=== PATIENT | female | born 1935 | race Two or more races ===

== ENCOUNTER 2024-09-02 08:24 | Emergency (ER) | payer BC, SELFPAY ==
[2024-09-02] VITALS (8 sets, daily range): BP systolic 165–169; BP diastolic 69–76; PULSE 60–65; RESP 14–24; TEMP 36.1; O2SAT 96–98; BMI 32.9
--- OUTSIDE RECORDS SUMMARY | 2024-09-02 08:26 | XMS_ITS | Encounter Summary ---
Author Organization [facility] Address [address] [place] [id number] Care Team Providers Care [facility] Operations Staff Officer Name Role Phone Thee Thomson MD Primary Care Provider Deborah Fan MD Primary Care Provider [phone] [facility] Primary Care Provider Rubi Castro MD Primary Care Provider [phone] Encounter Details Date Type Department Care Team (Late st Contact Info) Description 08/12/2008 [facility] [id number] [place] [phone] [facility] Social History Tobacco Use Types Packs/Day Years Used Date Smoking Tobacco: Never Alcohol Use Standard Drinks/Week Comments No 0 (1 standard drink = 0.6 oz pur e alcohol) Comments No Sex and Gender Information Value Date Recorded Sex Assigned at Not on file Legal Sex Female 4:18 AM [employer] Gender Identity Not on file Sexual Orientation Not on file documented as of this encounter Plan of Treatment Not on file documented as of this encounter Visit Diagnoses Not on filedocumented in this encounter Care Teams [facility] Operations Staff Officer Relationship Specialty Start Date End [place] Thee [place] [id number] [place] [address] [phone] PCP - General 10/06/01 10/12/12 [place] [address] [place] [address] PCP - General 10/13/12 [facility] [address] [place] [address] PCP - General 10/16/18 12/28/18 [place] [address] [place] [address] PCP - General Cardiology 12/29/18 documented as of this encounter
--- OUTSIDE RECORDS SUMMARY | 2024-09-02 08:27 | XMS_ITS | Clinical Summary ---
Author Organization [facility] Address [address] [place] [id number] Care Team Providers Care Manager Ecommerce Name Role Phone Delphine Mohr Primary Care Provider Allergies Active Allergy Reactions Criticality Noted Date Comments Acetaminophen Rash,Headache 07/28/2014 Amlodipine *Unknown 11/01/2018 Cephalexin Rash 07/28/2014 Carvedilol Headache,Hypertension 02/28/2018 ONLY CAN USE A SPECIFIC NEWSPAPER JOURNALIST- OTHERS CAUSE SEVERE REACTION Ibuprofen Hypertension 02/25/2017 Lisinopril Edema 09/15/2016 Losartan Anaphylaxis High 03/01/2024 Koootok-Luw-Vle Reductase Inhibitors Arthralgia 10/25/2013 Medications clotrimazole (LOTRIMIN) 1 % creamIndications: Tinea corporis Apply topically to affected area(s) 2 times daily. 45 g 1 02/17/20 20 Active medical supply, miscellaneous (GRADUATED COMPRESSION STOCKINGS)Indicat ions:Hypertension , unspecified type,Bilateral leg edema Compression level of 16-20 mmHg knee high medium 1 Packet 3 02/17/20 20 Active cetirizine (ZYRTEC) 10 mg tabletIndications :Allergy, initial encounter Take 1 Tablet (10 mg) by mouth once daily. 90 Tablet 3 03/01/20 24 Active bumetanide (BUMEX) 1 mg tabletIndications :Heart failure with preserved ejection fraction, unspecified HF chronicity (HC) Take one tablet 5 - 6 days per week 90 Tablet 3 05/06/19 25 Active Additional Information Patient taking differently: 1 mg Oral Q AM, Take one tablet 5 - 6 days per week, Reason: Only takes Tues and Th., Reported on 06/03/2024 fexofenadine (Sherrie Allergy) 60 mg tabletIndications :Angioedema, initial encounter Take 60 mg by mouth two times daily. 60 Tablet 3 06/04/19 25 Active eplerenone (INSPRA) 25 mg tabletIndications :Heart failure with preserved ejection fraction, unspecified HF chronicity (HC) Take 1 Tablet (25 mg) by mouth once daily. 90 Tablet 3 06/04/19 25 Active Graduated Compression StockingsIndicati ons:Heart failure with preserved ejection fraction, unspecified HF chronicity (HC) Compression level of 20-30 mmHg (medium compression), knee high. 2 Packet 3 06/04/19 25 Active carvediloL (Coreg) 12.5 mg tabletIndications :HTN (hypertension),He art failure with preserved ejection fraction, unspecified HF chronicity (HC) Take 1 Tablet (12.5 mg) by mouth two times daily. 180 Tablet 3 07/11/19 25 Active ALPRAZolam 0.25 mg tabletIndications :Insomnia, idiopathic Take 1 Tablet (0.25 mg) by mouth at bedtime if needed for Anxiety. 30 Tablet 08/08/19 25 Active ALPRAZolam 0.25 mg tabletIndications :Insomnia, idiopathic Take 1 Tablet (0.25 mg) by mouth at bedtime if needed for Anxiety. 30 Tablet 07/09/19 25 025 Discontin ued(Reord er (E-cancel not sent)) Active Problems Problem Noted Date Diagnosed Date Sensorineural hearing loss (SNHL) of both ears 1 04/29/2019 Congestive heart failure 10/10/2017 Hyperopia of left eye with astigmatism and presb yopia 09/25/2017 Myopia of right eye with astigmatism and presbyo sen 09/25/2017 Ruptured disk 03/02/2017 Overview (03/02/2017): T12 - L1 03/01/17 Venous stasis dermatitis of left lower extremity 08/29/2016 Calculus of gallbladder with acute on chronic ch olecystitis 08/29/2016 Pseudophakia of both eyes 10/20/2014 Palpitations 01/06/2014 Adjustment disorder with mixed anxiety and depre ssed mood 08/12/2013 Pre-ulcerative corn or callous 03/28/2013 Hyperlipidemia 02/11/2013 Chest pain 01/07/2013 Hyperparathyroidism 12/27/2012 Overview (12/27/2012): Normocalcemic. Dr. Meza recommends yearly calcium testing; if elevated, refer back to him. Biannual DXA and scan distal radius. DJD (degenerative joint disease) of knee 013 Pinedo cyst 11/26/2012 Meniscus tear 11/26/2012 Shortness of breath 11/12/2012 Abnormal echocardiogram 11/12/2012 Mitral regurgitation 10/22/2012 CAD (coronary artery disease) 10/20/2012 Vitamin D deficiency 10/04/2012 HTN (hypertension) Cardiomegaly Protruded lumbar disc Overview (10/03/2012): s/p surgical treatment Resolved Problems Problem Noted Date Diagnosed Date Resolved Date Adjustment disorder with anxiety 05/23/2013 10/25/2013 AAA (abdominal aortic aneurysm) 10/20/2012 02/24/2020 Overview (02/24/2020): CT notes tortuosity of aorta - not aneurysm as noted on US 02/24/2020 Heart murmur 10/03/2012 10/22/2012 Encounters Date Type Department Care Team Description 08/26/2024 3:00 PM CDT - 08/26/2024 11:59 PM CDT Hospital Encounter [facility] [address] [place] [address] Ramone Castro MD Zetina, Dora Heart failure with preserved ejection fraction, unspecified HF chronicity (HC); Cardiomyopathy, unspecified type (HC) 08/26/2024 Travel 08/09/2024 Nurse Triage [facility] [address] [place] [address] Delphine Mohr PA Blood Pressure 08/08/2024 Telephone [facility] [address] [place] [address] 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, 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 08/05/2024 Refill [facility] [address] [place] [address] Delphine Mohr PA Refill Request (Alprazolam/) 07/10/2024 Telephone [facility] [address] [place] [address] Reginald Sheikh MD Refill Request 07/08/2024 Refill [facility] [address] [place] [address] Reginald Sheikh MD Refill Request (carvediloL, xanax ) 07/05/2024 Refill [facility] [address] [place] [address] Delphine Mohr PA Refill Request (Alprazolam) 06/17/2024 10:15 AM CDT Orders Only [facility] [address] [place] [address] Lab, [facility] 06/17/2024 Telephone [facility] [address] [place] [address] Reginald Sheikh MD Questions (Rx for compression socks) 06/17/2024 Travel 06/07/[address] [address] Darrell Trivedi MD Results 06/03/2024 9:00 AM CDT Office Visit [facility] [address] [place] [address] Reginald Sheikh MD Follow Up (1 MONTH FOLLOW UP IN HF CLINIC PER TOSHA); Concerns (Patient says her ankle swelling has gone down slightly and she is doing a little more walking around the house) 06/03/2024 Telephone [facility] [address] [place] [address] Delphine Mohr PA Appointment Request 06/03/2024 Travel 06/03/[address] [address] Darrell Trivedi MD Results from Last 3 Months Immunizations Immunization Administration Dates Next Due Influenza, High-dose Inactivated 04/26/2016,01/26 Influenza, IIV3 (Age >=3 years) 12/26/19 13,01/04/2006,02/02/2004,2002 Influenza, Inactivated AIIV4 (Age 65+ Years) Preserv Free 02/17/2020 Influenza, Inactivated IIV3 (Age 65+ Years) Preserv Free 01/16/2019,11/21/2016 Pneumococcal Poly,23-Valent (Pneumovax) 10/15/2012,12/09/2009 Pneumococcal conj 13-Valent (Prevnar 13) 08/15/2014 Pneumococcal, Unspecified 10/15/2012 Td, Preservative Free (age > = 7 Years) 06/20/2006 Zoster (Zostavax-ZVL, live) 07/18/2014 Family History Medical History Relation Name Comments Hypertension Mother Cancer-breast No Family History Relation Name Status Comments Father Mother Social History Tobacco Use Types Packs/Day Years Used Date Smoking Tobacco: Never Smokeless Tobacco: Never Tobacco Cessation:Counseling Given: Yes Alcohol Use Standard Drinks/Week Comments No 0 (1 standard drink = 0.6 oz pur e alcohol) PHQ-2 Answer Date Recorded PHQ-2 TOTAL SCORE 2 03/01/2024 Social Connections Answer Date Recorded Do you often feel lonely or isolated from those around you? 0 03/01/2024 Financial Resource Strain Answer Date R ecorded Difficulty of Paying Living Expenses 3 03/01/2024 Difficulty of Paying Living Expenses Not on file 03/01/2024 Food Insecurity Answer Date Recorded Do you worry your food will run out before you are able to buy more? 1 03/01/2024 Transportation Needs Answer Date Record ed Does lack of transportation keep you from medica l appointments? 1 03/01/2024 Does lack of transportation keep you from work, meetings or getting things that you need? 1 03/01/2024 Housing Stability Answer Date Recorded What is your housing situation today? 1 03/01/2024 Utilities Answer Date Recorded Do you have trouble paying f or utilities (for example, heat, electricity, water, phone)? 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 Gender Identity Not on file Sexual Orientation Not on file Obstetrics History Last Filed Vital Signs Vital Sign Reading Time Taken Comments Blood Pressure 119/50 08/26/2024 4:22 PM CDT Pulse 67 08/26/2024 4:22 PM CDT Temperature 36.8 C (98.2 F) 05/27/2024 10:42 AM MUSIC EXECUTIVE Respiratory Rate 18 05/03/2024 2:49 PM MUSIC EXECUTIVE Oxygen Saturation 96% 08/26/2024 4:18 PM CDT Inhaled Oxygen Concentration - - Weight 80.7 kg (178 lb) 06/03/2024 9:20 AM CDT Height 154.9 cm (5' 1) 06/03/2024 9:20 AM CDT Body Mass Index 33.63 06/03/2024 9:20 AM CDT Plan of Treatment Upcoming Encounters Date Type Department Care Team (Late st Contact Info) Description 09/16/2024 10:25 AM CDT Office Visit [facility] [address] [place] [address] [place] [address] [place] [address] 11/22/2024 8:00 AM CDT Office Visit [facility] [address] [place] [phone] Reginald Sheikh MD [address] [place] [address] Health Maintenance Due Date Last Done Comments Tdap 1946 RSV vaccine for adults or (1 - 1-dose 75+ series) 2012 Zoster (shingles) series for age 50+ (2 of 3) 09/12/2014 07/18/2014 Tetanus booster 10/20/2016 10/20/2006 (Comp leted outside of [facility]), 06/20/2006 COVID-19 vaccine series (2023- season) 2023 Influenza Vaccine (Season Ended) 2024 02/17/2020, 01/16/2019, 11/21/2016, Additional history exists Medicare Wellness for age 65+ 03/02/2025 03/01/2024, 02/17/2020, 10/10/2017, Additional history exists Depression screening for age 12+ 03/04/2025 03/04/2024, 03/01/2024, 02/19/2020, Additional history exists BMI (ht and wt on same day) for age 18+ 06/03/2025 06/03/2024, 05/27/2024, 05/03/2024, Additional history exists Pneumococcal series for age 50+ Completed 08/15/2014, 10/15/2012, 10/15/2012, Additional history exists DEXA/DXA scan for age 65+ Completed 09/01/2015, 08/2012 Hepatitis B series for 19+ Aged Out N o longer eligible based on patient's age to complete this topic Procedures Procedure Name Priority Date/Time Associated Diagnosis Comments MR CARDIAC STRESS IMAGING WWO Routine 08/26/2024 4:42 PM CDT Heart failure with preserved ejection fraction, unspecified HF chronicity (HC) Cardiomyopathy, unspecified type (HC) ISTAT CHEM 8 Routine 08/26/2024 3:35 PM CDT BASIC METABOLIC PANEL Routine 06/17/2024 10:09 AM CDT Heart failure with preserved ejection fraction, unspecified HF chronicity (HC) XR DXA BONE DENSITY 2 SITES AXIAL Routine 09/01/2015 10:59 AM CDT Post-menopausal from Last 3 Months or Most Recently Relevant to Health Maintenance Results * MR CARDIAC STRESS IMAGING WWO (08/26/2024 4:42 PM CDT) Anatomical Region Laterality Modality Magnetic Resonan ce 08/26/2024 3:16 PM CDT Narrative 08/26/2024 5:27 PM CDT [facility] CMR Report Name: MATTIE VILLEGAS : Scan Date: Electronically signed by David Soares 17:27:37 VITALS ===== HEIGHT: 61 in (155 cm) WEIGHT: 178 lbs (81 kgs) BSA: 1.80 m^2 FINAL IMPRESSION ===== 1. Normal 1st pass quantitative myocardial perfusion during regadenoson stress and at rest. The probability of ischemia from hemodynamically significant obstructive coronary artery disease or microvascular disease is very low. Peak global myocardial blood flow measurement was normal at 2.3 mL/min/g. Myocardial perfusion reserve was also normal at 2.1. 2. No myocardial infarction or amyloidosis on late gadolinium enhancement imaging. There is dense nonspecific nonischemic myocardial fibrosis in the basal septum emanating from the aortic annulus. LV scar size is 2 % of LV mass. No diffuse fibrosis on extracellular volume (ECV) measures. No siderosis or Fabry s disease. No cardiac thrombus. No myocardial edema. 3. Quantitative LVEF 57 %. LV systolic function is normal. LV cavity size is normal. LV wall thickness is normal. 4. Quantitative RVEF 67 %. RV systolic function is normal. RV cavity size is normal. 5. Large filling defect noted in the suprarenal descending abdominal aorta occupying ~40% of the lumen suggesting atheroma, thrombosis or both. Recommend abdominal ultrasound or CT angiography for further evaluation. 6. Atheroma noted in the distal aortic arch. 7. No significant valve disease. There is mild tricuspid regurgitation qualitatively. There is trivial aortic regurgitation. Aortic regurgitant volume 1 ml. 8. No pericardial or pleural effusions. SUMMARY ===== LEFT VENTRICLE: Quantitative LVEF 57 %. LV systolic function is normal. LV cavity size is normal. LV wall thickness is normal. VIABILITY: No myocardial infarction or amyloidosis on late gadolinium enhancement imaging. There is dense nonspecific nonischemic myocardial fibrosis in the basal septum emanating from the aortic annulus. LV scar size is 2 % of LV mass. No diffuse fibrosis on extracellular volume (ECV) measures. No siderosis or Fabry s disease. No cardiac thrombus. No myocardial edema. STRESS: Normal 1st pass quantitative myocardial perfusion during regadenoson stress and at rest. The probability of ischemia from hemodynamically significant obstructive coronary artery disease or microvascular disease is very low. Peak global myocardial blood flow measurement was normal at 2.3 mL/min/g. Myocardial perfusion reserve was also normal at 2.1. RIGHT VENTRICLE: Quantitative RVEF 67 %. RV systolic function is normal. RV cavity size is normal. LEFT ATRIUM: Saundra 52 mL/m2 RIGHT ATRIUM: Kevin 88 mL/m2 PERICARDIUM: There is no pericardial effusion. PLEURAL EFFUSION: There is no pleural effusion. AORTIC VALVE: Aortic valve is trileaflet. There is no aortic stenosis. There is trivial aortic regurgitation. Aortic regurgitant volume 1 ml. MITRAL VALVE: Mitral valve is mildly thickened. There is no mitral regurgitation. TRICUSPID VALVE: Tricuspid valve leaflets are normal. There is mild tricuspid regurgitation qualitatively. AORTIC ROOT: The aortic root is normal. OTHER FINDINGS: -Large filling defect noted in the suprarenal descending abdominal aorta occupying ~40% of the lumen suggesting atheroma, thrombosis or both. Recommend abdominal ultrasound or CT angiography for further evaluation. -Atheroma noted in the distal aortic arch. -Spherical <2 cm nonenhancing areas in the kidneys are consistent with simple cysts, but not characterized on this cardiac exam. CORE EXAM ===== MEASUREMENTS ----- --- VOLUMETRIC ANALYSIS . . LV Reference RV Reference +------+ +------+ +------+ + EDV ml 152 125 ml/m^2 85 70 ESV ml 66 41 ml/m^2 37 23 CO L/min 5.68 5.54 L/min/m^2 3.16 3.08 MASS g 92 g/m^2 51 SV ml 86 84 ml/m^2 48 47 EF % 57 67 '------+ +------+ +------+ ' CARDIAC OUTPUT HR: 66 BPM EXTRACELLULAR VOLUME MEASUREMENT PRE-CONTRAST T1 MYOCARDIUM: 1050 msec ECV: 26.7 % IRON QUANTIFICATION MYOCARDIAL T2*: 41 msec LIVER T2*: 29 msec 17 SEGMENT ----- --- . ----- ------. Segments Wall Motion Hyperenhancement Stress Perfusion Interpretation + + + + +----- ----- ------+ Base Anterior Normal/Hyper None Normal Base Anteroseptal Normal/Hyper 1-25% Normal Non-CAD Scar Base Inferoseptal Normal/Hyper 1-25% Normal Non-CAD Scar Base Inferior Normal/Hyper None Normal Base Inferolateral Normal/Hyper None Normal Base Anterolateral Normal/Hyper None Normal Mid Anterior Normal/Hyper None Normal Mid Anteroseptal Normal/Hyper None Normal Mid Inferoseptal Normal/Hyper None Normal Mid Inferior Normal/Hyper None Normal Mid Inferolateral Normal/Hyper None Normal Mid Anterolateral Normal/Hyper None Normal Apical Anterior Normal/Hyper None Normal Apical Septal Normal/Hyper None Normal Apical Inferior Normal/Hyper None Normal Apical Lateral Normal/Hyper None Normal [place] Normal/Hyper None Normal + + + + +----- ----- ------+ RV Segments Wall Motion Hyperenhancement Interpretation + + + + +----- ----- ------+ RV Basal Anterior RV Basal Inferior RV Mid RV Apical ' + + + +----- ----- ------' FINDINGS LV SCAR SIZE (17 SEGMENT): 2 % STRESS ===== STRESS PROTOCOL ----- --- Regadenoson AMOUNT: 0.4 mg AMINOPHYLLINE DOSE: 50 mg SCAN INFO ===== GENERAL ----- --- SCANNER NEWSPAPER JOURNALIST: SIEMENS MODEL: Avanto_fit CONTRAST AGENT TYPE: Gadavist GD CONCENTRATION: 1.0 M VOLUME ADMINISTERED: 10 ml DOSAGE: 0.12 mmol/kg SETUP REFERRING PHYSICIAN: RAMONE CASTRO ATTENDING PHYSICIAN: RAMONE CASTRO BILLING ===== Patient Account [id number] ICD10 Codes I50.30, I42.9 ADDITIONAL NOTES ===== 1 venc flow Report generated by [employer], a product of [employer] Procedure Note David Soares MD - 08/26/2024 [facility] CMR Report Name: BAKARI MATTIE S : Scan Date: Electronically signed by David Soares 17:27:37 VITALS ===== HEIGHT: 61 in (155 cm) WEIGHT: 178 lbs (81 kgs) BSA: 1.80 m^2 FINAL IMPRESSION ===== 1. Normal 1st pass quantitative myocardial perfusion during regadenosonstress and at rest. The probability of ischemia from hemodynamically significant obstructive coronary arterydisease or microvascular disease is very low. Peak global myocardial blood flow measurement was normal at2.3 mL/min/g. Myocardial perfusion reserve was also normal at 2.1. 2. No myocardial infarction or amyloidosis on late gadolinium enhancementimaging. There is dense nonspecific nonischemic myocardial fibrosis in the basal septum emanatingfrom the aortic annulus. LV scar size is 2 % of LV mass. No diffuse fibrosis on extracellular volume (ECV)measures. No siderosis or Fabry s disease. No cardiac thrombus. No myocardial edema. 3. Quantitative LVEF 57 %. LV systolic function is normal. LV cavity sizeis normal. LV wall thickness is normal. 4. Quantitative RVEF 67 %. RV systolic function is normal. RV cavity sizeis normal. 5. Large filling defect noted in the suprarenal descending abdominal aortaoccupying ~40% of the lumen suggesting atheroma, thrombosis or both. Recommend abdominal ultrasoundor CT angiography for further evaluation. 6. Atheroma noted in the distal aortic arch. 7. No significant valve disease. There is mild tricuspid regurgitationqualitatively. There is trivial aortic regurgitation. Aortic regurgitant volume 1 ml. 8. No pericardial or pleural effusions. SUMMARY ===== LEFT VENTRICLE: Quantitative LVEF 57 %. LV systolic function is normal. LVcavity size is normal. LV wall thickness is normal. VIABILITY: No myocardial infarction or amyloidosis on late gadoliniumenhancement imaging. There is dense nonspecific nonischemic myocardial fibrosis in the basal septum emanating from theaortic annulus. LV scar size is 2 % of LV mass. No diffuse fibrosis on extracellular volume (ECV) measures. Nosiderosis or Fabry s disease. No cardiac thrombus. No myocardial edema. STRESS: Normal 1st pass quantitative myocardial perfusion duringregadenoson stress and at rest. The probability of ischemia from hemodynamically significant obstructive coronary arterydisease or microvascular disease is very low. Peak global myocardial blood flow measurement was normal at 2.3mL/min/g. Myocardial perfusion reserve was also normal at 2.1. RIGHT VENTRICLE: Quantitative RVEF 67 %. RV systolic function is normal.RV cavity size is normal. LEFT ATRIUM: Saundra 52 mL/m2 RIGHT ATRIUM: Kevin 88 mL/m2 PERICARDIUM: There is no pericardial effusion. PLEURAL EFFUSION: There is no pleural effusion. AORTIC VALVE: Aortic valve is trileaflet. There is no aortic stenosis.There is trivial aortic regurgitation. Aortic regurgitant volume 1 ml. MITRAL VALVE: Mitral valve is mildly thickened. There is no mitralregurgitation. TRICUSPID VALVE: Tricuspid valve leaflets are normal. There is mildtricuspid regurgitation qualitatively. AORTIC ROOT: The aortic root is normal. OTHER FINDINGS: -Large filling defect noted in the suprarenal descendingabdominal aorta occupying ~40% of the lumen suggesting atheroma, thrombosis or both. Recommend abdominal ultrasoundor CT angiography for further evaluation. -Atheroma noted in the distal aortic arch. -Spherical <2 cm nonenhancing areas in the kidneys are consistent withsimple cysts, but not characterized on this cardiac exam. CORE EXAM ===== MEASUREMENTS ----- --- VOLUMETRIC ANALYSIS . . LV Reference RV Reference +------+ +------+ +------+ + EDV ml 152 125 ml/m^2 85 70 ESV ml 66 41 ml/m^2 37 23 CO L/min 5.68 5.54 L/min/m^2 3.16 3.08 MASS g 92 g/m^2 51 SV ml 86 84 ml/m^2 48 47 EF % 57 67 '------+ +------+ +------+ ' CARDIAC OUTPUT HR: 66 BPM EXTRACELLULAR VOLUME MEASUREMENT PRE-CONTRAST T1 MYOCARDIUM: 1050 msec ECV: 26.7 % IRON QUANTIFICATION MYOCARDIAL T2*: 41 msec LIVER T2*: 29 msec 17 SEGMENT ----- --- . ----- ------. Segments Wall Motion Hyperenhancement Stress Perfusion Interpretation + + + + +----- ----- ------+ Base Anterior Normal/Hyper None Normal Base Anteroseptal Normal/Hyper 1-25% Normal Non-CAD Scar Base Inferoseptal Normal/Hyper 1-25% Normal Non-CAD Scar Base Inferior Normal/Hyper None Normal Base Inferolateral Normal/Hyper None Normal Base Anterolateral Normal/Hyper None Normal Mid Anterior Normal/Hyper None Normal Mid Anteroseptal Normal/Hyper None Normal Mid Inferoseptal Normal/Hyper None Normal Mid Inferior Normal/Hyper None Normal Mid Inferolateral Normal/Hyper None Normal Mid Anterolateral Normal/Hyper None Normal Apical Anterior Normal/Hyper None Normal Apical Septal Normal/Hyper None Normal Apical Inferior Normal/Hyper None Normal Apical Lateral Normal/Hyper None Normal [place] Normal/Hyper None Normal + + + + +----- ----- ------+ RV Segments Wall Motion Hyperenhancement Interpretation + + + + +----- ----- ------+ RV Basal Anterior RV Basal Inferior RV Mid RV Apical ' + + + +----- ----- ------' FINDINGS LV SCAR SIZE (17 SEGMENT): 2 % STRESS ===== STRESS PROTOCOL ----- --- Regadenoson AMOUNT: 0.4 mg AMINOPHYLLINE DOSE: 50 mg SCAN INFO ===== GENERAL ----- --- SCANNER NEWSPAPER JOURNALIST: SIEMENS MODEL: Avanto_fit CONTRAST AGENT TYPE: Gadavist GD CONCENTRATION: 1.0 M VOLUME ADMINISTERED: 10 ml DOSAGE: 0.12 mmol/kg SETUP REFERRING PHYSICIAN: RAMONE CASTRO ATTENDING PHYSICIAN: RAMONE CASTRO BILLING ===== Patient Account [id number] ICD10 Codes I50.30, I42.9 ADDITIONAL NOTES ===== 1 venc flow Report generated by [employer], a product of [employer] us Ramone Castro MD MR Final Result * ISTAT CHEM 8 (08/26/2024 3:35 PM CDT) [facility] SODIUM, POCT 08/26/2024 3:45 PM CDT LABORATORY Comment:Unable to determine. POTASSIUM, POCT 08/26/2024 3:45 PM CDT LABORATORY Comment:Unable to determine. CHLORIDE, POCT 08/26/2024 3:45 PM CDT LABORATORY Comment:Unable to determine. CO2,TOTAL, POCT 08/26/2024 3:45 PM CDT LABORATORY Comment:Unable to determine. ANION GAP, POCT 08/26/2024 3:45 PM CDT LABORATORY Comment:Unable to calculate. GLUCOSE, POCT 08/26/2024 3:45 PM CDT LABORATORY Comment:Unable to determine. IONIZED CALCIUM, POCT 08/26/2024 3:45 PM CDT [facility] Comment:Unable to determine. BUN, POCT 08/26/2024 3:45 PM CDT LABORATORY Comment:Unable to determine. CREATININE, POCT 08/26/2024 3:45 PM CDT LABORATORY Comment:Unable to determine. BUN/CREAT RATIO, POCT 08/26/2024 3:45 PM CDT LABORATORY Comment:Unable to calculate. eGFR 08/26/2024 3:45 PM CDT LABORATORY Comment:Unable to calculate. HEMATOCRIT, POCT 38.0 33.0 - 51.0 % 08/26/2024 3:45 PM CDT LABORATORY HEMOGLOBIN, POCT 12.9 12.0 - 16.0 g/dL 08/26/2024 3:45 PM CDT LABORATORY Blood BLOOD SPECIMEN / Unknown 08/26/2024 3:35 PM CDT 08/26/2024 3:45 PM CDT Ramone Castro MD CHEMISTRY Final Result LABORATORY [facility] ZIP [id number] [place] [id number] * BASIC METABOLIC PANEL (06/17/2024 10:09 AM CDT) GLUCOSE 92 65 - 99 mg/dL [facility] Comment: Fasting reference interval UREA NITROGEN (BUN) 11 7 - 25 mg/dL [facility] CREATININE 0.66 0.60 - 0.95 mg/dL [facility] EGFR 85 > OR = 60 mL/min/1. 73m2 [facility] [place] BUN/CREATININE RATIO SEE NOTE: 6 - 22 (calc) [facility] Comment: Not Reported: BUN and Creatinine are within reference range. SODIUM 139 135 - 146 mmol/L [facility] POTASSIUM 4.7 3.5 - 5.3 mmol/L [facility] CHLORIDE 102 98 - 110 mmol/L [facility] CARBON DIOXIDE 24 20 - 32 mmol/L [facility] ELECTROLYTE BALANCE 13 7 - 17 mmol/L (calc) [facility] CALCIUM 9.2 8.6 - 10.4 mg/dL [facility] Blood BLOOD SPECIMEN / Unknown 06/17/2024 10:09 AM CDT 06/17/2024 10:09 AM CDT Reginald Sheikh MD CHEMISTRY Final Result [facility] [address] [place] [address], [place] [phone] [facility] [address] [place] [address] * (ABNORMAL) XR DEXA BONE DENSITY 2 SITES [33005.1] (09/01/2015 10:59 AM CDT) Anatomical Region Laterality Modality Spine, HIPS, HIPL, HIPR Other Narrative 09/02/2015 9:24 PM CDT Please see scanned document for results of this study. Deborah Fan MD DEXA Final Result from Last 3 Months or Most Recently Relevant to Health Maintenance Insurance MEDICARE PART A HB ONLY [facility] Member Subscriber Plan / Payer (Ef fective 2024-Present) Name:Mattie Villegas Relation to Subscriber:Self Name:Mattie Villegas Payer ID:[id number] ([facility]) Group ID:[id number] Type:Not on file Address: MAILSTOP: [id number] [address] [place] [address] Care Teams Manager Ecommerce Relationship Specialty [place] [address] [place] [address] PCP - General Physician Malt Specifications Control Assistant 05/03/24
--- OUTSIDE RECORDS SUMMARY | 2024-09-02 08:28 | XMS_ITS | Encounter Summary ---
Author Organization [place] Address [address] [place] [address] Care Team Providers Care Devops Architect Name Role Phone Thee Thomson MD Primary Care Provider [phone] Deborah Fan MD Primary Care Provider [phone] [facility] Primary Care Provider Rubi Castro MD Primary Care Provider [phone] Encounter Details Date Type Department Care Team (Late st Contact Info) Description 10/18/2010 [facility] Medical Advice [facility] [id number] [place] [address] [phone] Homa Connolly, LILIAM Social History Tobacco Use Types Packs/Day Years Used Date Smoking Tobacco: Never Alcohol Use Standard Drinks/Week Comments No 0 (1 standard drink = 0.6 oz pur e alcohol) Comments No Sex and Gender Information Value Date Recorded Sex Assigned at Not on file 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 Gender Identity Not on file Sexual Orientation Not on file documented as of this encounter Plan of Treatment Not on file documented as of this encounter Visit Diagnoses Not on filedocumented in this encounter Care Teams Devops Architect Relationship Specialty Start Date [place]e Thomson [place] [id number] [place] [id number] PCP - General 10/06/01 10/12/12 [place] [address] [place] [address] PCP - General 10/13/12 10/15/18 [facility] [address] [place] [address] PCP - General 10/16/18 12/28/18 [place] [address] [place] [address] PCP - General Cardiology 12/29/18 documented as of this encounter
--- OUTSIDE RECORDS SUMMARY | 2024-09-02 08:28 | XMS_ITS | Clinical Summary ---
Author Organization [place] Address [address] [place] [address] Care Team Providers Care Industrial Diamond Polisher Name Role Phone Rubi Castro MD Primary Care Provider [phone] Allergies Active Allergy Reactions Criticality Noted Date Comments Acetaminophen Other (See Comments) 11/14/2018 Gives me high blood pressure No Known Allergies 08/23/2002 Medications aspirin 81 MG tablet Take 81 mg by mouth every morning Active menthol (ICY HOT) 5 % PTCHIndications:M idline thoracic back pain, unspecified chronicity Apply 1 patch topically every 8 hours as needed for muscle soreness 10 patch 7 Active rosuvastatin (CRESTOR) 10 MG tablet Take 10 mg by mouth daily Active carvedilol (COREG) 6.25 MG tabletIndications :Benign essential hypertension Take 2 tablets (12.5 mg) by mouth 2 times daily (with meals) 60 tablet 9 Active carvedilol (COREG) 12.5 MG tabletIndications :Benign essential hypertension Take 1 tablet (12.5 mg) by mouth 2 times daily (with meals) 60 tablet 9 Active Active Problems Problem Noted Date Diagnosed Date Cervical cancer screening 02/25/2016 Overview (02/25/2016): No pap results found in epic. Pt needs 2 Normal Pap/Neg HPV results or 3 Normal paps within the past 10 years, with the last one being in the last 5 years, before pap screening can be discontinued. Hm updated to 3 yr Pap/HPV. CHF (congestive heart failure) 06/10/2010 CARDIOVASCULAR SCREENING; LDL GOAL LESS THAN 130 01/24/2010 Resolved Problems Problem Noted Date Diagnosed Date Resolved Date Atypical chest pain 02/25/2017 02/26/20 17 Immunizations Immunization Administration Dates Next Due Influenza (IIV3) PF 01/04/2006,02/02/2004,2002 [place] Tuberculin Skin Test 11/08/2000 Pneumococcal 23 valent 10/15/2012,12/09/2009 TD,PF 7+ (Tenivac) 06/20/2006 Social History Tobacco Use Types Packs/Day Years Used Date Smoking Tobacco: Never Alcohol Use Standard Drinks/Week Comments No 0 (1 standard drink = 0.6 oz pur e alcohol) Adolescent Education Answer Date Record ed Getting School Help Needed Not on file 01/01 Comments No Sex and Gender Information Value Date Recorded Sex Assigned at Not on file 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 Gender Identity Not on file Sexual Orientation Not on file Last Filed Vital Signs Vital Sign Reading Time Taken Comments Blood Pressure 109/52 12/30/2018 10:14 AM CDT Pulse 69 12/29/2018 3:44 PM CDT Temperature 36.5 C (97.7 F) 12/30/2018 10:14 AM CDT Respiratory Rate 18 12/30/2018 10:14 AM CDT Oxygen Saturation 97% 12/30/2018 10:14 AM CDT Inhaled Oxygen Concentration - - Weight 86.4 kg (190 lb 8 oz) 12/29/2018 2:25 PM CDT Height 154.9 cm (5' 1) 12/29/2018 2:25 PM CDT Body Mass Index 35.99 12/29/2018 2:25 PM CDT Plan of Treatment Not on file Advance Directives For more information, please contact: [phone] * Full Code (Latest Code Status on File) Date Activated Date Inactivated Comments 12/29/2018 2:27 PM 12/30/2018 1:16 PM C/w prior wi shes Question Answer Comments Code status determined by: Other (please documen t) * Full Code Date Activated Date Inactivated Comments 02/25/2017 7:04 AM 02/25/2017 7:17 PM * Full Code Date Activated Date Inactivated Comments 10/15/2012 10:08 AM 02/25/2017 7:04 AM * Full Code Date Activated Date Inactivated Comments 10/14/2012 4:46 AM 10/15/2012 10:08 AM Care Teams Industrial Diamond Polisher Relationship Specialty Start Date End Date Rubi Castro MD PCP - General Cardiology 12/29/18
--- OUTSIDE RECORDS SUMMARY | 2024-09-02 08:28 | XMS_ITS | Encounter Summary ---
Author Organization [place] Address [address] [place] [address]. [place] [address] Care Team Providers Care Building Carpenter Helper Name Role Phone Thee Thomson MD Primary Care Provider [phone] Deborah Fan MD Primary Care Provider [phone] [facility] Primary Care Provider Rubi Castro MD Primary Care Provider [phone] Encounter Details Date Type Department Care Team (Late st Contact Info) Description 11/09/2007 [facility] [address] [facility], [address] [place] [address] [place] [address] [place] [address] Social History Tobacco Use Types Packs/Day Years Used Date Smoking Tobacco: Never Alcohol Use Standard Drinks/Week Comments No 0 (1 standard drink = 0.6 oz pur e alcohol) Comments No Sex and Gender Information Value Date Recorded Sex Assigned at Not on file 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 Gender Identity Not on file Sexual Orientation Not on file documented as of this encounter Plan of Treatment Not on file documented as of this encounter Visit Diagnoses Not on filedocumented in this encounter Care Teams Building Carpenter Helper Relationship Specialty [place] [address] [place] [address] PCP - General 10/06/01 10/12/12 [place] [address] [place] [address] PCP - General 10/13/12 10/15/18 [facility] [address] [place] [address] PCP - General 10/16/18 12/28/18 [place] [address] [place] [address] PCP - General Cardiology 12/29/18 documented as of this encounter
--- NOTE | 2024-09-02 09:13 | ED_ITS ---
HPI - General Adult General Chief complaint: Sore Throat Stated complaint: Throat swelling Time Seen by Provider: 09/02/24 08:56 History of Present Illness HPI narrative: This 88-year-old female comes in with her daughter. 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 The patient is reporting some pain in her throat and a sense of swelling in her tongue that began yesterday afternoon. She has had symptoms like this in the past. She does not report any fever or cough. She is on an antianxiety medicine and a couple blood pressure medicines. She is not on an FORREST-inhibitor. She states that her symptoms have improved a bit since yesterday. She also reports some itching in both of her hands. Related Data Home Medications ?Medication ?Instructions ?Recorded ?Confirmed alprazolam 0.25 mg tablet mg PO 09/02/24 bumetanide 1 mg tablet 1 mg PO DAILY 09/02/2409/02 carvedilol 12.5 mg tablet 12.5 mg PO BID 09/02/2412/19 eplerenone 25 mg tablet 25 mg PO DAILY 09/02/2412/19 Previous Rx's ?Medication ?Instructions ?Recorded methylprednisolone 4 mg tablets in See Rx Instructions PO .COMPLEX 09/02/24 a dose pack (Medrol (Rubens)) #21 ea Allergies Allergy/AdvReac Type Severity Reaction Status Date / Time No Known Drug Allergies Allergy Verified 09/02/24 08:39 Review of Systems Status of ROS: Reports: 10 or more systems reviewed and unremarkable except as noted in History and below Narrative: Constitutional: No fevers, no weight gain or loss. Eyes: No discharge. No vision changes. HENT: No congestion, no ear pain. She reports a sore throat and feeling like her tongue was swelling up. Cardiovascular: No chest pain, no palpitations. Respiratory: No shortness of breath, no wheezes, no cough. Gastrointestinal: No abdominal pain, no vomiting, no diarrhea. Genitourinary: No dysuria, no hematuria. Musculoskeletal: Normal range of motion. Skin: No rashes. Itching in both of her hands. Neurological: No dizziness, weakness, sensory change, speech change. Endo/Heme/Allergies: No bruising or bleeding. No polydipsia. Pysch: no suicidality, no anxiety, no insomnia. All other systems reviewed and are negative. [facility] Social History Smoking Status: Former smoker Second hand tobacco smoke exposure: No How often do you have a drink containing alcohol: never How often do you have six or more drinks on one occasion: Never AUDIT-C Alcohol total score: 0 Non-prescribed substance use: denies use Exam Narrative: Exam Narrative: Constitutional: Well-developed, well-nourished, no acute distress. HEENT: Normocephalic, atraumatic. No pharyngeal erythema or exudate. No tonsillar hypertrophy. Tongue appears normal without any sign of swelling or angioedema. Neck: Normal range of motion. Nontender. Supple. Heart: Regular. No murmurs. Normal rate. Intact distal pulses. Lungs: Clear to auscultation. No chest discomfort. No wheezes, rhonchi, or rales. Abdomen: Normal bowel sounds. Nontender. No rebound tenderness. Genitalia: Deferred. Back: No midline tenderness. Normal range of motion. Extremities: Normal range of motion. No injury. Skin: Intact. No rash. Warm. No erythema or pallor. Neurologic: No altered sensation. No weakness. Alert and oriented. Psychiatric: No suicidality. No anxiety or depression. No insomnia. Nursing notes and vitals signs are reviewed. Const: Vital Signs, click to edit/add: Vital Signs - 24 hr 09/02/24 08:34 09/02/24 08:45 09/02/24 08:51 Temperature 96.9 F L Pulse Rate 65 Pulse Rate [Pulse Oximeter] 63 Respiratory Rate 24 21 Blood Pressure Blood Pressure [Ri ght Upper Arm] 169/76 H Pulse Oximetry 96 96 96 Oxygen Delivery Me thod Room Air 09/02/24 09:00 09/02/24 09:02 09/02/24 09:15 Temperature Pulse Rate 64 61 65 Pulse Rate [Pulse Oximeter] Respiratory Rate 21 21 14 Blood Pressure 165/69 H Blood Pressure [Ri ght Upper Arm] Pulse Oximetry 96 96 98 Oxygen Delivery Me thod 09/02/24 09:30 09/02/24 09:45 Temperature Pulse Rate 60 60 Pulse Rate [Pulse Oximeter] Respiratory Rate 21 20 Blood Pressure Blood Pressure [Ri ght Upper Arm] Pulse Oximetry 96 96 Oxygen Delivery Me thod Course Vital Signs Vital signs: Initial Vital Signs Temperature 96.9 F L 09/02/24 08:34 Temperature Source Temporal Artery Scan 09/02/24 08:34 Pulse Rate 63 09/02/24 08:34 Respiratory Rate 24 09/02/24 08:34 Blood Pressure 169/76 H 09/02/24 08:34 Blood Pressure Mean 107 H 09/02/24 08:34 Blood Pressure Position Supine 09/02/24 08:34 Pulse Oximetry 96 09/02/24 08:34 Oxygen Delivery Method Room Air 09/02/24 08:34 Vital Signs Temperature 96.9 F L 09/02/24 08:34 Pulse Rate 63 09/02/24 08:34 Respiratory Rate 24 09/02/24 08:34 Blood Pressure 169/76 H 09/02/24 08:34 Pulse Oximetry 96 09/02/24 08:34 Oxygen Delivery Method Room Air 09/02/24 08:34 Temperature 96.9 F L 09/02/24 08:34 Pulse Rate 60 09/02/24 09:45 Respiratory Rate 20 09/02/24 09:45 Blood Pressure 165/69 H 09/02/24 09:02 Pulse Oximetry 96 09/02/24 09:45 Oxygen Delivery Method Room Air 09/02/24 08:34 Medications Administered Medications: Discontinued Medications Generic Name Dose Route Start Last Admin Trade Name Freq PRN Reason Stop Dose Admin Dexamethasone 10 mg 09/02/24 09:12 09/02/24 09:22 Dexamethasone 10 Mg/Ml Inj PO 09/02/24 09:13 10 mg ONCE ONE Administration Diphenhydramine HCl 25 mg 09/02/24 09:12 09/02/24 09:22 Diphenhydramine 25 Mg Capsule PO 09/02/24 09:13 25 mg ONCE ONE Administration Medical Decision Making [facility] Narrative Medical decision making narrative: This patient comes in describing some sense of swelling in her tongue with a sore throat that began yesterday. Her symptoms have improved and she reports having symptoms like this in the past. She is not on an FORREST-inhibitor. She did receive an oral dose of Benadryl and dexamethasone here and states that she is feeling better. A strep test is obtained and returns negative. The patient's exam is actually quite normal with no sign of angioedema or pharyngeal erythema. She is okay to be discharged home. I did provide a prescription for Medrol Dosepak which may be used as needed in the future if symptoms are recurrent. I also recommend using an antihistamine in. Lab Data Labs: Lab Results 09/02/24 Range/Units 08:50 Group A Strep DNA NOT DETECTED (Not Detectd) Discharge Plan Discharge Clinical Impression: Allergic reaction Patient Disposition: Home w/ Parent or Adult Condition: Improved Additional Instructions: Continue current plans. I recommend using an [id number] antihistamine as needed and directed. A prescription for Medrol Dosepak is provided which may also be used if symptoms are recurrent. Prescriptions: New methylprednisolone [Medrol (Rubens)] 4 mg tablets,dose pack See Rx Instructions .ROUTE .COMPLEX Qty: 21 0RF Rx Instructions: orally per package directions No Action carvedilol 12.5 mg tablet 12.5 mg PO BID alprazolam 0.25 mg tablet PO bumetanide 1 mg tablet 1 mg PO DAILY eplerenone 25 mg tablet 25 mg PO DAILY Follow Up/Referrals: Provider,Not a Local [Primary Care Provider, Family Practice] Stand Alone Forms: Private Outletth Info Instructions
[2024-09-02 09:20] LABS: Strep A DNA Probe* NOT DETECTED (Not Detectd)
[2024-09-02] MEDS: dexAMETHasone 10 MG/ML inj PO (09:22)
[2024-09-02] MEDS: diphenhydrAMINE 25 MG CAPSULE PO (09:22)
== END 2024-09-02 10:36 | disposition home or self-care (01) ==
PROVIDERS: Emergency Provider Emergency Medicine Emergency Medical Services
DX: J02.9 Acute pharyngitis, unspecified (principal); T78.40XA Allergy, unspecified, initial encounter
CPT/HCPCS: 87651; 94761; 99284; T1013; A9270; J1100

== ENCOUNTER 2024-10-18 06:06 | Emergency (ER) | payer BC, SELFPAY ==
[2024-10-18] VITALS (18 sets, daily range): BP systolic 153–183; BP diastolic 54–117; PULSE 57–70; RESP 11–24; TEMP 36.3; O2SAT 96–100; BMI 32.9
[2024-10-18] MEDS: EPINEPHrine 0.3 MG PEN IM (06:06)
--- OUTSIDE RECORDS SUMMARY | 2024-10-18 06:08 | XMS_ITS | Clinical Summary ---
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 90 Tablet 3 03/01/20 24 Active Additional Information Patient not taking.Reported on 09/23/2024 bumetanide (BUMEX) 1 mg tabletIndications :Heart failure with preserved ejection fraction, unspecified HF chronicity (HC) Take one tablet 5 - 6 days per week 90 Tablet 3 05/06/19 25 Active fexofenadine (Sherrie Allergy) 60 mg tabletIndications :Angioedema, initial encounter Take 60 mg by mouth two times daily. 60 Tablet 3 06/04/19 25 Active Additional Information Patient not taking.Reported on 09/23/2024 eplerenone (INSPRA) 25 mg tabletIndications :Heart failure [...] daily. 180 Tablet 3 07/11/19 25 Active wheelchairIndicat ions:Difficulty walking Wheelchair: Standard with leg rests: (Swing away Length of need: indefinite months 1 Each 09/17/19 25 Active ALPRAZolam 0.25 mg tabletIndications :Insomnia, idiopathic Take 1 Tablet (0.25 mg) by mouth at bedtime if needed for Anxiety. 30 Tablet 09/18/19 25 Active diphenhydrAMINE (BenadryL) 25 mg capsule Take 25 mg by mouth every 4 hours if needed. Active hydrOXYzine HCL 25 mg tabletIndications :Insomnia, idiopathic Take 1-2 tabs by mouth as needed for anxiety and sleep. 90 Tablet 1 09/24/19 25 Active trimethoprim-sulf amethoxazole 160-800 mg tabIndications:ur inary tract infection Take 1 Tablet by mouth two times daily for 14 days. 28 Tablet 09/27/19 25 025 Active Problems Problem Noted Date Diagnosed Date [...] Encounters Date Type Department Care Team Description 10/16/2024 Telephone [facility] [address] [place], [place] [phone] Delphine Mohr PA Orders (Verbal orders) 10/07/2024 Telephone [facility] [address] [place] [address] Delphine Mohr PA Outside Order 10/04/2024 Telephone [facility] [address] [place] [address] Delphine Mohr PA Outside Order (Occupational Therapy) 10/02/2024 Telephone [facility] [address] [place] [address] Delphine Mohr PA ACC Order Request (Physical Therapy) 09/30/2024 Telephone [facility] [id number] [place] [address] Delphine Mohr PA Outside Order (Verbal Order) 09/26/2024 Orders Only [facility] [place] [id number] [place] [address] Delphine Mohr PA <No scans attached> 09/23/2024 9:00 AM CDT Ancillary Procedure [facility] [address] [place] [address] 09/23/2024 8:55 AM CDT Ancillary Procedure [place] [address] [place] [address] 09/23/2024 8:50 AM CDT Ancillary Procedure [facility] [place] [address] [place] [address] 09/23/2024 8:45 AM CDT Ancillary Procedure [place] [address] [place] [address] 09/23/2024 7:30 AM CDT Office Visit [facility] [address] [place] [address] Delphine Mohr PA Knee Pain/problem (right); Flank Pain (Left back/abdomen pain ) 09/23/2024 Telephone [place] [address] [place] [address] Delphine Mohr PA Form (ORDER ) 09/23/2024 Telephone [facility] [address] [place] [address] Delphine Mohr PA Home Care 09/22/2024 Travel 09/19/2024 Telephone [facility] [address] [place] [address] Delphine Mohr PA Results 09/19/2024 Orders Only [facility] [address] [place] [address] Delphine Mohr PA <No scans attached> 09/16/2024 10:25 AM CDT Office Visit [facility] [address] [place] [address] Delphine Mohr PA Mouth/Lip Problem (tongue swelling) 09/16/2024 Telephone [facility] [address] [place] [address] Delphine Mohr PA Follow Up (Follow up on research after today's appointment. ) 09/16/2024 Travel 09/11/2024 Travel 09/03/2024 Telephone [facility] [address] [place] [phone] Ramone Castro MD Results (Stress test/) 09/02/2024 Orders Only [facility] Scanner 1 scan: (1-Ord) [facility], 09/02/2024 08/26/2024 3:00 PM CDT - 08/26/2024 11:59 PM CDT Hospital Encounter [facility] [address] [place] [address] Ramone Castro MD Zetina, Dora Heart failure with preserved ejection fraction, unspecified HF chronicity (HC); Cardiomyopathy, unspecified type (HC) 08/26/2024 Travel 08/09/2024 Nurse Triage [facility] [address] [place] [address] Delphine Mohr PA Blood Pressure 08/08/2024 Telephone [facility] [address] [place] [address] 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 RN Imaging 08/05/2024 Refill [facility] [address] [place] [address] Delphine Mohr PA Refill Request (Alprazolam/) from Last 3 Months Immunizations Immunization Administration [...] on file Legal Sex Female 6:16 AM RIVET FLUNKY Gender Identity Not on file Sexual Orientation Not on file Obstetrics History Last Filed Vital Signs Vital Sign Reading Time Taken Comments Blood Pressure 150/70 09/23/2024 8:40 AM CDT Pulse 80 09/23/2024 7:35 AM CDT Temperature 37 C (98.6 F) 09/16/2024 10:46 AM CDT Respiratory Rate 18 05/03/2024 2:49 PM RIVET FLUNKY Oxygen Saturation 97% 09/16/2024 10:46 AM CDT Inhaled Oxygen Concentration - - Weight 80.3 kg (177 lb) 09/23/2024 7:35 AM CDT Height 154.9 cm (5' 1) 09/23/2024 7:35 AM CDT Body Mass Index 33.44 09/23/2024 7:35 AM CDT Plan of Treatment Upcoming Encounters Date Type Department Care Team (Late st Contact Info) Description 11/22/2024 8:00 AM CDT Office Visit [facility] [address] [facility] [address] [place] [phone] Reginald Sheikh MD [address] [facility] [address] [place] [address] Health Maintenance Due Date Last Done Comments RSV vaccine for adults or (1 - 1-dose 75+ series) 2012 Zoster (shingles) series for age 50+ (2 of 3) 09/12/2014 07/18/2014 Tetanus booster 10/20/2016 10/20/2006 (Comp leted outside of [facility]), 06/20/2006 COVID-19 vaccine series ( season) 2023 Influenza Vaccine (#1) 2024 , 01/16/2019, 11/21/2016, Additional history exists Medicare Wellness for age 65+ 03/02/2025 03/01/2024, 02/17/2020, 10/10/2017, Additional history exists Depression screening for age 12+ 03/04/2025 03/04/2024, 03/01/2024, 02/19/2020, Additional history exists BMI (ht and wt on same day) for age 18+ 09/23/2025 09/23/2024, 06/03/2024, 05/27/2024, Additional history exists Pneumococcal series for age 50+ Completed 08/15/2014, 10/15/2012, 10/15/2012, Additional history exists DEXA/DXA scan for age 65+ Completed 09/01/2015, 08/2012 Hepatitis B series for 19+ Aged Out N o longer eligible based on patient's age to complete this topic Procedures Procedure Name Priority Date/Time Associated Diagnosis Comments URINE CULTURE Add On 09/23/2024 10:59 AM CDT Abdominal pain, LUQ (left upper quadrant) URINALYSIS MICROSCOPIC Routine 9:40 AM CDT Abdominal pain, LUQ (left upper quadrant) URINALYSIS MACROSCOPIC - [facility] ONLY POC DIP ([facility]) Routine 09/23/2024 9:38 AM CDT Abdominal pain, LUQ (left upper quadrant) XR RIBS LEFT AND PA CHEST MINIMUM 3 VIEWS Routine 09/23/2024 9:36 AM CDT Abdominal pain, LUQ (left upper quadrant) XR KNEE 3 VIEWS RIGHT Routine 09/23/2024 9:36 AM CDT Chronic pain of right knee XR HIP 1 VIEW W PELVIS BILAT Routine 09/23/2024 9:35 AM CDT Bilateral hip pain XR SHOULDER 2 VIEWS RIGHT Routine 09/23/2024 9:35 AM CDT Chronic right shoulder pain BASIC METABOLIC PANEL Routine 09/23/2024 9:35 AM CDT Heart failure with preserved ejection fraction, unspecified HF chronicity (HC) CYCLIC CITRULLINE PEPTIDE Routine 09/23/2024 9:35 AM CDT Positive KEV (antinuclear antibody) RA QUANTITATIVE Routine 09/23/2024 9:35 AM CDT Positive KEV (antinuclear antibody) DNA DOUBLE-STRANDED (DSDNA) ANTIBODIES BY CRITHIDIA LUCILIAE IFA Routine 09/23/2024 9:35 AM CDT Positive KEV (antinuclear antibody) ANTI-ARENAS Routine 09/23/2024 9:35 AM CDT Positive KEV (antinuclear antibody) ANTISCLERODERMA 70 ANTIBODIES Routine 09/23/2024 9:35 AM CDT Positive KEV (antinuclear antibody) ANTI SU 1 Routine 09/23/2024 9:35 AM CDT Positive KEV (antinuclear antibody) SJOGRENS ANTIBODIES Routine 09/23/2024 9 :35 AM CDT Positive KEV (antinuclear antibody) POLICE ARTIST ANTIBODY Routine 09/23/2024 9:35 AM CDT Positive KEV (antinuclear antibody) LIPASE Routine 09/23/2024 9:35 AM CDT Abdominal pain, LUQ (left upper quadrant) ANTINUCLEAR ANTIBODIES TITER AND PATTERN ([facility] REFLEX ONLY) Routine 09/16/2024 11:51 AM CDT HSV TYPE 1/2 DNA QL PCR (BLOOD AND NON BLOOD) ([facility]) Routine 09/16/2024 11:51 AM CDT Tongue swelling COMP METABOLIC PANEL Routine 09/16/2024 11:51 AM CDT Tongue swelling Facial swelling ANTINUCLEAR ANTIBODY BY IFA Routine 09/16/2024 11:51 AM CDT Tongue swelling Facial swelling TSH WITH REFLEX Routine 09/16/2024 11:51 AM CDT Tongue swelling Facial swelling CBC WITH AUTO DIFFERENTIAL Routine 09/16/2024 11:51 AM CDT Tongue swelling Facial swelling C-REACTIVE PROTEIN Routine 09/16/2024 11 :51 AM CDT Tongue swelling Facial swelling SEDIMENTATION RATE Routine 09/16/2024 11 :51 AM CDT Tongue swelling Facial swelling SCAN-LABORATORY REPORT 12:00 AM CDT MR CARDIAC STRESS IMAGING WWO Routine 08/26/2024 4:42 PM CDT Heart failure with preserved ejection fraction, unspecified HF chronicity (HC) Cardiomyopathy, unspecified type (HC) ISTAT CHEM 8 Routine 08/26/2024 3:35 PM CDT XR DXA BONE DENSITY 2 SITES AXIAL Routine 09/01/2015 10:59 AM CDT Post-menopausal from Last 3 Months or Most Recently Relevant to Health Maintenance Results * (ABNORMAL) URINE CULTURE (09/23/2024 10:59 AM CDT) CULTURE RESULT(A) 09/25/2024 10:19 PM CDT [facility] CULTURE 10,000-50,000 CFU/mL Klebsiella pneumoniae 09/25/2024 10:19 PM CDT [facility] Urine URINE SPECIMEN / Unknown Non-Blood / Unknown 09/23/2024 10:59 AM CDT 09/23/2024 10:59 AM CDT Narrative Organism Antibiotic Method Susceptibility Klebsiella pneumoniae TRIMETHOPRIM/SULF <=1/19: S Klebsiella pneumoniae AMPICILLIN R Klebsiella pneumoniae CEFAZOLIN 2: S Klebsiella pneumoniae CEFAZOLIN-UC 2: S Comment:Cefazolin-UC interpretations are for therapy of uncomplicated UTIs due to E.coli, K.pneumoniae, or P.mirablis. Cefazolin breakpoint is used as a surrogate to predict results for the oral agents - cefdinir, cefuroxime, and cephalexin, when used for therapy of uncomplicated UTIs due to E coli, K, pneumoniae, and P. mirabilis. The FDA recommends cefadroxil susceptibility can be deduced from cefazolin. Klebsiella pneumoniae GENTAMICIN <=1: S Klebsiella pneumoniae CEFTRIAXONE <=0.25: S Klebsiella pneumoniae CEFTAZIDIME <=0.5: S Klebsiella pneumoniae LEVOFLOXACIN <=0.12: S Klebsiella pneumoniae CIPROFLOXACIN <=0.06: S Klebsiella pneumoniae PIPERACILLIN/TAZO <=4: S Klebsiella pneumoniae AMPICILLIN/SULBACTAM <=2: S Klebsiella pneumoniae CEFEPIME <=0.12: S Klebsiella pneumoniae MEROPENEM <=0.25: S Klebsiella pneumoniae NITROFURANTOIN 32: S Delphine CABRERA MICROBIOLOGY Final Result [facility] [address] [place] [address], * (ABNORMAL) URINALYSIS MICROSCOPIC (09/23/2024 9:40 AM CDT) RBC 0-2 0-2, None Seen /HPF 09/23/2024 3:26 PM CDT [facility] WBC >100(A) 0-2, 3-5, None Seen /HPF 09/23/2024 3:26 PM CDT [facility] BACTERIA Rare None Seen, Rare, Few Bacteria/ HPF 09/23/2024 3:26 PM CDT [facility] EPITHELIAL CELLS None Seen None Seen, Few Epi/HPF 09/23/2024 3:26 PM CDT [facility] HYALINE CASTS 0-2 0-2, 3-5 /LPF 09/23/2024 3:26 PM CDT [facility] Urine URINE SPECIMEN / Unknown Non-Blood / Unknown 09/23/2024 9:40 AM CDT 09/23/2024 9:40 AM CDT Delphine CABRERA URINE Final Result [facility] [address] [place] [address], [place] * (ABNORMAL) URINALYSIS [facility] ONLY POC DIP ([facility]) (09/23/2024 9:38 AM CDT) Pathologist [facility] PH 7.5 5.0 - 8.0 [facility] SPECIFIC GRAVITY 1.015 1.001 - 1.035 [facility] GLUCOSE NEGATIVE NEGATIVE [facility] BILIRUBIN NEGATIVE NEGATIVE [facility] KETONES NEGATIVE NEGATIVE [facility] OCCULT BLOOD TRACE(A) NEGATIVE [facility] PROTEIN NEGATIVE NEGATIVE [facility] NITRITE NEGATIVE NEGATIVE [facility] LEUKOCYTE ESTERASE 1+(A) NEGATIVE [facility] Urine URINE SPECIMEN / Unknown 09/23/2024 9:38 AM CDT 09/23/2024 9:38 AM CDT Delphine CABRERA URINE Final Result Performing Organization Address City/[facility]/ZIP Co de Phone Number [facility] [address] [address] [address], [facility] [address], [place] [address] * XR RIBS LEFT AND PA CHEST MINIMUM 3 VIEWS (09/23/2024 9:36 AM CDT) Anatomical Region Laterality Modality RIBS, RIBS L, CHEST Computed Rad iography 09/23/2024 10:3 2 AM CDT Impressions 09/23/2024 10:32 AM CDT No acute cardiopulmonary disease. No rib fracture. Gastric distension with air. Dictated by Cj Sanchez MD @ 09/23/2024 10:32:45 AM (Electronically Signed) Narrative 09/23/2024 10:32 AM CDT For Patients: As a result of the Cures Act, medical imaging exams and procedure reports are released immediately into your electronic medical record. You may view this report before your referring provider. If you have questions, please contact your health care provider. INDICATION: Abdominal pain, LUQ (left upper quadrant) COMPARISON: 3.3.25 TECHNIQUE: PA chest and left ribs. FINDINGS: The lungs are clear. There is no evidence of pulmonary contusion, pneumothorax or pleural effusion. The heart and pulmonary vessels are stable. Oblique detail views of the ribs demonstrate no evidence of fracture or intrinsic bone lesion. There is no evidence of pleural hematoma. Procedure Note Cj Sanchez MD - 09/23/2024 For Patients: As a result of the Cures Act, medical imagingexams and procedure reports are released immediately into your electronicmedical record. You may view this report before your referring provider.If you have questions, please contact your health care provider. INDICATION: Abdominal pain, LUQ (left upper quadrant) COMPARISON: 3.3.25 TECHNIQUE: PA chest and left ribs. FINDINGS: The lungs are clear. There is no evidence of pulmonary contusion,pneumothorax or pleural effusion. The heart and pulmonary vessels arestable. Oblique detail views of the ribs demonstrate no evidence offracture or intrinsic bone lesion. There is no evidence of pleuralhematoma. IMPRESSION: No acute cardiopulmonary disease. No rib fracture. Gastric distension withair. Dictated by Cj Sanchez MD @ 09/23/2024 10:32:45 AM (Electronically Signed) Delphine CABRERA GENERAL IMAGING Final Result * XR KNEE 3 VIEWS RIGHT (09/23/2024 9:36 AM CDT) Anatomical Region Laterality Modality KNEES, KNEE R Computed Radiogr aphy 09/23/2024 10:4 3 AM CDT Narrative 09/23/2024 10:43 AM CDT For Patients: As a result of the Cures Act, medical imaging exams and procedure reports are released immediately into your electronic medical record. You may view this report before your referring provider. If you have questions, please contact your health care provider. Indication: Knee pain Technique: Right knee 3 views Comparison: 11/02/2018 Findings: Lateral compartment narrowing and spurring with increased valgus angulation. Medial compartment spurring. Patellofemoral narrowing and spurring. Joint effusion. Chronic distal quadriceps tendinosis. Vascular calcifications. 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 Dictated by Cj Sanchez MD @ 09/23/2024 10:43:21 AM (Electronically Signed) Procedure Note Cj Sanchez MD - 09/23/2024 For Patients: As a result of the s , medical imagingexams and procedure reports are released immediately into your electronicmedical record. You may view this report before your referring provider.If you have questions, please contact your health care provider. Indication: Knee pain Technique: Right knee 3 views Comparison: 11/02/2018 Findings: Lateral compartment narrowing and spurring with increased valgusangulation. Medial compartment spurring. Patellofemoral narrowing andspurring. Joint effusion. Chronic distal quadriceps tendinosis. Vascularcalcifications. 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 Dictated by Cj Sanchez MD @ 09/23/2024 10:43:21 AM (Electronically Signed) Delphine CABRERA GENERAL IMAGING Final Result * XR HIP 1 VIEW W PELVIS BILAT (09/23/2024 9:35 AM CDT) Anatomical Region Laterality Modality HIPS, HIPL, HIPR, Pelvis Compute d Radiography 09/23/2024 10:4 4 AM CDT Narrative 09/23/2024 10:44 AM CDT For Patients: As a result of the s Act, medical imaging exams and procedure reports are released immediately into your electronic medical record. You may view this report before your referring provider. If you have questions, please contact your health care provider. Indication: Bilateral hip pain Technique: Pelvis and both hips 3 views Comparison: 11/02/2018 Findings: Spurring at both hip joints. Narrowing of the superior right hip joint. No fracture. Intact pubic rami. Incidental soft tissue densities. Vascular calcifications. Degenerative changes lower lumbar spine. 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 Dictated by Cj Sanchez MD @ 09/23/2024 10:44:36 AM (Electronically Signed) Procedure Note Cj Sanchez MD - 09/23/2024 For Patients: As a result of the Cures Act, medical imagingexams and procedure reports are released immediately into your electronicmedical record. You may view this report before your referring provider.If you have questions, please contact your health care provider. Indication: Bilateral hip pain Technique: Pelvis and both hips 3 views Comparison: 11/02/2018 Findings: Spurring at both hip joints. Narrowing of the superior right hip joint. Nofracture. Intact pubic rami. Incidental soft tissue densities. Vascularcalcifications. Degenerative changes lower lumbar spine. Impression: Degenerative joint disease at both hips, right greater than left, notsignificantly changed. Dictated by Cj Sanchez MD @ 09/23/2024 10:44:36 AM (Electronically Signed) Delphine CABRERA GENERAL IMAGING Final Result * XR SHOULDER 2 VIEWS RIGHT (09/23/2024 9:35 AM CDT) Anatomical Region Laterality Modality SHOULDERS, SHOULDER R Computed R adiography 09/23/2024 10:3 4 AM CDT Narrative 09/23/2024 10:34 AM CDT For Patients: As a result of the s Act, medical imaging exams and procedure reports are released immediately into your electronic medical record. You may view this report before your referring provider. If you have questions, please contact your health care provider. Indication: Chronic right shoulder pain Technique: Right shoulder 2 views. Comparison: None. Findings: Narrowing and spurring at the acromioclavicular joint. Subacromial spur. Degenerative changes at the glenohumeral joint. No fracture. Impression: Degenerative joint disease right shoulder with prominent subacromial spur. Dictated by Cj Sanchez MD @ 09/23/2024 10:34:56 AM (Electronically Signed) Procedure Note Cj Sanchez MD - 09/23/2024 For Patients: As a result of the Cures Act, medical imagingexams and procedure reports are released immediately into your electronicmedical record. You may view this report before your referring provider.If you have questions, please contact your health care provider. Indication: Chronic right shoulder pain Technique: Right shoulder 2 views. Comparison: None. Findings: Narrowing and spurring at the acromioclavicular joint. Subacromial spur.Degenerative changes at the glenohumeral joint. No fracture. Impression: Degenerative joint disease right shoulder with prominent subacromialspur. Dictated by Cj Sanchez MD @ 09/23/2024 10:34:56 AM (Electronically Signed) Delphine CABRERA GENERAL IMAGING Final Result * ANTI SU 1 (09/23/2024 9:35 AM CDT) SU-1 ANTIBODY <1.0 NEG <1.0 NEG AI [facility] Blood BLOOD SPECIMEN / Unknown 09/23/2024 9:35 AM CDT 09/23/2024 9:35 AM CDT Delphine CABRERA SEND OUTS Final Result My Single Point [facility] [address] [place] [address], [facility] [address] [place] [address] * ANTISCLERODERMA 70 ANTIBODIES (09/23/2024 9:35 AM CDT) SCL-70 ANTIBODY <1.0 NEG <1.0 NEG AI [facility] [place] Blood BLOOD SPECIMEN / Unknown 09/23/2024 9:35 AM CDT 09/23/2024 9:35 AM CDT Delphine CABRERA SEND OUTS Final Result Performing Organization Address [facility] Co de Phone Number My Single Point [facility] [address] [place] [address], [place] [phone] [facility] [address] [place] [address] * POLICE ARTIST ANTIBODY (09/23/2024 9:35 AM CDT) POLICE ARTIST ANTIBODY <1.0 NEG <1.0 NEG AI [facility] [place] Blood BLOOD SPECIMEN / Unknown 09/23/2024 9:35 AM CDT 09/23/2024 9:35 AM CDT us Delphine CABRERA SEND OUTS Final Result Performing Organization Address [facility] Co de Phone Number My Single Point [facility] [address] [place] [address], [place] [phone] [facility] [address] [place] [address] * ANTI-ARENAS (09/23/2024 9:35 AM CDT) SM ANTIBODY <1.0 NEG <1.0 NEG AI [facility] [place] Blood BLOOD SPECIMEN / Unknown 09/23/2024 9:35 AM CDT 09/23/2024 9:35 AM CDT us Delphine CABRERA SEND OUTS Final Result Performing Organization Address [facility]/ZIP Co de Phone Number My Single Point [facility] [address] [place] [address], [place] [phone] [facility] [address] [place] [address] * SJOGRENS ANTIBODIES (09/23/2024 9:35 AM CDT) Pathologist [facility] SJOGREN'S ANTIBODY (SS-A) <1.0 NEG <1.0 NEG AI [facility] SJOGREN'S ANTIBODY (SS-B) <1.0 NEG <1.0 NEG AI [facility] Blood BLOOD SPECIMEN / Unknown 09/23/2024 9:35 AM CDT 09/23/2024 9:35 AM CDT Delphine CABRERA SEND OUTS Final Result Performing Organization Address City/[facility]/ZIP Co de Phone Number My Single Point [facility] [address] [place] [address], [facility] [address] [place] [address] * CYCLIC CITRULLINE PEPTIDE (09/23/2024 9:35 AM CDT) Pathologist [facility] CYCLIC CITRULLINATED PEPTIDE (CCP) AB (IGG) <16 UNITS [facility] Comment: Reference Range Negative: <20 Weak Positive: 20-39 Moderate Positive: 40-59 Strong Positive: >59 Blood BLOOD SPECIMEN / Unknown 09/23/2024 9:35 AM CDT 09/23/2024 9:35 AM CDT Delphine CABRERA SEND OUTS Final Result My Single Point [facility] [address] [place] [address], [facility] [address] [place] [address] * RA QUANTITATIVE (09/23/2024 9:35 AM CDT) Pathologist [facility] RHEUMATOID FACTOR <10 <14 IU/mL [facility] Blood BLOOD SPECIMEN / Unknown 09/23/2024 9:35 AM CDT 09/23/2024 9:35 AM CDT Delphine CABRERA SEND OUTS Final Result Performing Organization Address [facility]/State/ZIP Co de Phone Number [facility] [address] [place] [address], [place] [phone] [facility] [address] [place] [address] * [id number]-[id number]-[id number] (09/23/2024 9:35 AM CDT) DNA (DS) ANTIBODY 1 IU/mL [facility] Comment: IU/mL Interpretation < or = 4 Negative 5-9 Indeterminate > or = 10 Positive Blood BLOOD SPECIMEN / Unknown 09/23/2024 9:35 AM CDT 09/23/2024 9:35 AM CDT Delphine CABRERA SEND OUTS Final Result Performing Organization Address [facility]/ZIP Co de Phone Number [facility] [address] [facility] [place] [address], [place] [phone] [facility] [address] [place] [address] * LIPASE (09/23/2024 9:35 AM CDT) LIPASE 25 7 - 60 U/L [facility] Blood BLOOD SPECIMEN / Unknown 09/23/2024 9:35 AM CDT 09/23/2024 9:35 AM CDT us Delphine CABRERA CHEMISTRY Final Result [facility] [address] [place] [place] [address], [place] [phone] [facility] [address] [place] [address] * (ABNORMAL) BASIC METABOLIC PANEL (09/23/2024 9:35 AM CDT) GLUCOSE 92 65 - 99 mg/dL [facility] Comment: Fasting reference interval UREA NITROGEN (BUN) 17 7 - 25 mg/dL [facility] CREATININE 0.83 0.60 - 0.95 mg/dL [facility] EGFR 69 > OR = 60 mL/min/1. 73m2 [facility] BUN/CREATININE RATIO SEE NOTE: 6 - 22 (calc) [facility] Comment: Not Reported: BUN and Creatinine are within reference range. SODIUM 138 135 - 146 mmol/L [facility] POTASSIUM 4.9 3.5 - 5.3 mmol/L [facility] CHLORIDE 100 98 - 110 mmol/L [facility] CARBON DIOXIDE 32 20 - 32 mmol/L [facility] ELECTROLYTE BALANCE 6(L) 7 - 17 mmol/L (calc) [facility] CALCIUM 9.7 8.6 - 10.4 mg/dL [facility] Blood BLOOD SPECIMEN / Unknown 09/23/2024 9:35 AM CDT 09/23/2024 9:35 AM CDT Ramone Castro MD CHEMISTRY Final Result My Single Point [facility] [address] [place] [address], [facility] [address] [place] [address] * (ABNORMAL) ANTINUCLEAR ANTIBODIES TITER AND PATTERN ([facility] REFLEX ONLY) (09/16/2024 11:51 AM CDT) KEV TITER 1:160(H) titer [facility] Comment: Reference Range <1:40 Negative 1:40-1:80 Low Antibody Level >1:80 Elevated Antibody Level KEV PATTERN Nuclear, Dense Fine Speckled(A ) [facility] Comment: Dense fine speckled pattern is seen in normal individuals and rarely associated with systemic lupus erythematosis (SLE), Sjogren's syndrome and systemic sclerosis. AC-2: Dense Fine Speckled International Consensus on KEV Patterns (https://doi.org/10.1515/ttfs-7732-7482) 09/16/2024 11:5 1 AM CDT 09/16/2024 11:54 AM CDT Delphine CABRERA LABORATORY Final Result My Single Point [facility] [address] [place] [address], [facility] [address] [place] [address] * HSV TYPE 1/2 DNA QL PCR (BLOOD AND NON BLOOD) (Authorly) (09/16/2024 11:51 AM CDT) Pathologist [facility] SOURCE HSVPCR Blood [facility] HSV 1 DNA Not Detected Not Detected [facility] HSV 2 DNA Not Detected Not Detected [facility] Comment: (Note) This test was developed and its analytical performance characteristics have been determined by [facility]. It has not been cleared or approved by the U.S. Food and Drug Administration. This assay has been validated pursuant to the CLIA regulations and is used for clinical purposes. [facility] [address] [address],[address] [place] [address] Parker Garza MD, PhD BLOOD SPECIMEN / Unknown 09/16/2024 11:51 AM CDT 09/16/2024 11:54 AM CDT Delphine CABRERA SEND OUTS Final Result [facility] [address] [place] [address], [facility] [address] [place] [address], [address] [place] [address] * (ABNORMAL) SEDIMENTATION RATE (09/16/2024 11:51 AM CDT) Pathologist [facility] SED RATE BY MODIFIED WESTERGREN 31(H) < OR = 30 mm/h [facility] Blood BLOOD SPECIMEN / Unknown 09/16/2024 11:51 AM CDT 09/16/2024 11:54 AM CDT Delphine CABRERA HEMATOLOGY Final Result My Single Point [facility] [address] [place] [address], [facility] [address] [place] [address] * (ABNORMAL) ANTINUCLEAR ANTIBODY BY IFA (09/16/2024 11:51 AM CDT) [facility] KEV SCREEN, IFA POSITIVE( A) NEGATIVE [employer] Reinaldo Palomo Comment: KEV IFA is a first line screen for detecting the presence of up to approximately 150 autoantibodies in various autoimmune diseases. A positive KEV IFA result is suggestive of autoimmune disease and reflexes to titer and pattern. Further laboratory testing may be considered if clinically indicated. For additional information, please refer to http://education.PushCall/faq/ZRL892 (This link is being provided for informational/ educational purposes only.) Blood BLOOD SPECIMEN / Unknown 09/16/2024 11:51 AM CDT 09/16/2024 11:54 AM CDT us Delphine CABRERA CHEMISTRY Final Result My Single Point [facility] [address] [place] [address], [facility] [address] [place] [address] * TSH WITH REFLEX (09/16/2024 11:51 AM CDT) [facility] TSH W/REFLEX TO FT4 1.62 0.40 - 4.50 mIU/L [facility] Blood BLOOD SPECIMEN / Unknown 09/16/2024 11:51 AM CDT 09/16/2024 11:54 AM CDT Delphine CABRERA CHEMISTRY Final Result Performing Organization Address City/[facility]/ZIP Co de Phone Number [facility] [employer] [address] [address], [facility] [address] [place] [address] * C-REACTIVE PROTEIN (09/16/2024 11:51 AM CDT) [facility] C-REACTIVE PROTEIN 3.0 <8.0 mg/L [facility] Blood BLOOD SPECIMEN / Unknown 09/16/2024 11:51 AM CDT 09/16/2024 11:54 AM CDT Delphine CABRERA CHEMISTRY Final Result Performing Organization Address [facility] de Phone Number [facility] [employer] [address] [address], [facility] [address] [place] [address] * (ABNORMAL) CBC AND DIFFERENTIAL (09/16/2024 11:51 AM CDT) [facility] WHITE BLOOD CELL COUNT 9.0 3.8 - 10.8 Thousand/u L [facility] RED BLOOD CELL COUNT 3.65(L) 3.80 - 5.10 Million/uL [facility] HEMOGLOBIN 12.7 11.7 - 15.5 g/dL [facility] HEMATOCRIT 38.2 35.0 - 45.0 % [facility] MCV 104.7(H) 80.0 - 100.0 fL [facility] MCH 34.8(H) 27.0 - 33.0 pg [facility] MCHC 33.2 32.0 - 36.0 g/dL [facility] Comment: For adults, a slight decrease in the calculated MCHC value (in the range of 30 to 32 g/dL) is most likely not clinically significant; however, it should be interpreted with caution in correlation with other red cell parameters and the patient's clinical condition. RDW 11.1 11.0 - 15.0 % [facility] PLATELET COUNT 301 140 - 400 Thousand/u L [facility] MPV 10.5 7.5 - 12.5 fL [facility] ABSOLUTE NEUTROPHILS 5,958 1,500 - 7,800 cells/uL [facility] ABSOLUTE LYMPHOCYTES 2,322 850 - 3,900 cells/uL [facility] ABSOLUTE MONOCYTES 612 200 - 950 cells/uL [facility] ABSOLUTE EOSINOPHILS 81 15 - 500 cells/uL [facility] ABSOLUTE BASOPHILS 27 0 - 200 cells/uL [facility] NEUTROPHILS 66.2 % [facility] LYMPHOCYTES 25.8 % [facility] MONOCYTES 6.8 % [facility] EOSINOPHILS 0.9 % [facility] BASOPHILS 0.3 % [facility] Blood BLOOD SPECIMEN / Unknown 09/16/2024 11:51 AM CDT 09/16/2024 11:54 AM CDT Delphine CABRERA HEMATOLOGY Final Result [facility] [employer] [facility] [address] [place] [address], [facility] [address] [place] [address] * (ABNORMAL) COMP METABOLIC PANEL (09/16/2024 11:51 AM CDT) [facility] GLUCOSE 99 65 - 99 mg/dL [facility] Comment: Fasting reference interval UREA NITROGEN (BUN) 18 7 - 25 mg/dL [facility] CREATININE 0.84 0.60 - 0.95 mg/dL [facility] EGFR 68 > OR = 60 mL/min/1. 73m2 [facility] BUN/CREATININE RATIO SEE NOTE: 6 - 22 (calc) [facility] Comment: Not Reported: BUN and Creatinine are within reference range. SODIUM 138 135 - 146 mmol/L [facility] POTASSIUM 4.6 3.5 - 5.3 mmol/L [facility] CHLORIDE 100 98 - 110 mmol/L [facility] CARBON DIOXIDE 33(H) 20 - 32 mmol/L [facility] CALCIUM 9.6 8.6 - 10.4 mg/dL [facility] PROTEIN, TOTAL 6.9 6.1 - 8.1 g/dL [facility] ALBUMIN 4.1 3.6 - 5.1 g/dL [facility] GLOBULIN 2.8 1.9 - 3.7 g/dL (calc) [facility] ALBUMIN/GLOBULIN RATIO 1.5 1.0 - 2.5 (calc) [facility] BILIRUBIN, TOTAL 0.5 0.2 - 1.2 mg/dL [facility] ALKALINE PHOSPHATASE 93 37 - 153 U/L [facility] AST 14 10 - 35 U/L [facility] ALT 8 6 - 29 U/L [facility] Blood BLOOD SPECIMEN / Unknown 09/16/2024 11:51 AM CDT 09/16/2024 11:54 AM CDT Delphine CABRERA CHEMISTRY Final Result My Single Point [facility] [address] [place] [address], [facility] [address] [place] [address] * SCAN-LABORATORY REPORT (09/02/2024 12:00 AM CDT) us Scanner OTHER Final Result * MR CARDIAC STRESS IMAGING WWO (08/26/2024 4:42 PM CDT) Anatomical Region Laterality Modality Magnetic Resonan ce 08/26/2024 3:16 PM CDT Narrative 08/26/2024 5:27 PM CDT [facility] CMR Report Name: MATTIE VILLEGAS : Scan [...] None Normal Apical Lateral Normal/Hyper None Normal [place] Normal/Hyper None Normal + + + + [...] SCAN INFO ===== GENERAL ----- --- SCANNER INSIDE SALES CONSULTANT: SIEMENS MODEL: Avanto_fit CONTRAST AGENT TYPE: Gadavist GD CONCENTRATION: 1.0 M VOLUME ADMINISTERED: 10 ml DOSAGE: 0.12 mmol/kg SETUP REFERRING PHYSICIAN: RAMONE CASTRO ATTENDING PHYSICIAN: RAMONE CASTRO BILLING ===== Patient Account [id number] ICD10 Codes I50.30, I42.9 ADDITIONAL NOTES ===== 1 venc flow Report generated by Pre[employer], a product of [employer] Procedure Note David Soares MD - 08/26/2024 [facility] CMR Report Name: MATTIE VILLEGAS : Scan [...] None Normal Apical Lateral Normal/Hyper None Normal [place] Normal/Hyper None Normal + + + + [...] SCAN INFO ===== GENERAL ----- --- SCANNER INSIDE SALES CONSULTANT: SIEMENS MODEL: Avanto_fit CONTRAST AGENT TYPE: Gadavist GD CONCENTRATION: 1.0 M VOLUME ADMINISTERED: 10 ml DOSAGE: 0.12 mmol/kg SETUP REFERRING PHYSICIAN: RAMONE CASTRO ATTENDING PHYSICIAN: RAMONE CASTRO BILLING ===== Patient Account [id number] ICD10 Codes I50.30, I42.9 ADDITIONAL NOTES ===== 1 venc flow Report generated by [employer], a product of [employer] Ramone Castro MD MR Final Result * ISTAT CHEM 8 (08/26/2024 3:35 PM CDT) [facility] SODIUM, POCT 08/26/2024 3:45 PM CDT [facility] Comment:Unable to determine. POTASSIUM, POCT 08/26/2024 3:45 PM CDT [facility] Comment:Unable to determine. CHLORIDE, POCT 08/26/2024 3:45 PM CDT [facility] Comment:Unable to determine. CO2,TOTAL, POCT 08/26/2024 3:45 PM CDT [facility] Comment:Unable to determine. ANION GAP, POCT 08/26/2024 3:45 PM CDT [facility] Comment:Unable to calculate. GLUCOSE, POCT 08/26/2024 3:45 PM CDT [facility] Comment:Unable to determine. IONIZED CALCIUM, POCT 08/26/2024 3:45 PM CDT [facility] Comment:Unable to determine. BUN, POCT 08/26/2024 3:45 PM CDT [facility] Comment:Unable to determine. CREATININE, POCT 08/26/2024 3:45 PM CDT [facility] Comment:Unable to determine. BUN/CREAT RATIO, POCT 08/26/2024 3:45 PM CDT [facility] Comment:Unable to calculate. eGFR 08/26/2024 3:45 PM CDT [facility] Comment:Unable to calculate. HEMATOCRIT, POCT 38.0 33.0 - 51.0 % 08/26/2024 3:45 PM CDT [facility] HEMOGLOBIN, POCT 12.9 12.0 - 16.0 g/dL 08/26/2024 3:45 PM CDT [facility] Blood BLOOD SPECIMEN / Unknown 08/26/2024 3:35 PM CDT 08/26/2024 3:45 PM CDT us Ramone Castro MD CHEMISTRY Final Result [facility] SENDOUT INTERNAL ZIP [id number] [place] [address] * (ABNORMAL) XR DEXA BONE DENSITY 2 SITES [33200.1] (09/01/2015 10:59 AM CDT) Anatomical Region Laterality Modality Spine, HIPS, HIPL, HIPR Other Narrative 09/02/2015 9:24 PM CDT Please see scanned document for results of this study. us Deborah Fan MD DEXA Final Result from Last 3 Months or Most Recently Relevant to Health Maintenance Insurance MEDICARE PART A HB ONLY [facility] Member Subscriber Plan / Payer (Ef fective 2024-Present) Name:Mattie Villegas Relation to Subscriber:Self Name:Mattie Villegas Payer ID:[id number] (NAIC) Group ID:[id number] Type:Not on file Address: MAILSTOP: [id number] [place] [address] Care Teams Liquid Center Assembler Relationship Specialty [place] [address] [place] [address] PCP - General Physician Powder Press Operator 05/03/24 Reginlad Sheikh MD [address] [facility] [address] [place] [address] Cardiology - CHF Cardiovascular Disease 10/17/24
--- OUTSIDE RECORDS SUMMARY | 2024-10-18 06:08 | XMS_ITS | Encounter Summary ---
Author Organization [facility] Address [address] [place] [address]. [place] [address] Care Team Providers Care Nephrology Nurse Name Role Phone Thee Thomson MD Primary Care Provider [phone] Deborah Fan MD Primary Care Provider [phone] [facility] Primary Care Provider Rubi Castro MD Primary Care Provider [phone] Encounter Details Date Type Department Care Team (Late st Contact Info) Description 11/09/2007 [facility] [address] [facility], [address] [place] [address] [place] [address] [place] [address] Social History Tobacco Use Types Packs/Day Years Used Date Smoking Tobacco: Never Alcohol Use Standard Drinks/Week Comments No 0 (1 standard drink = 0.6 oz pur e alcohol) Comments No Sex and Gender Information Value Date Recorded Sex Assigned at Not on file 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 Gender Identity Not on file Sexual Orientation Not on file documented as of this encounter Plan of Treatment Not on file documented as of this encounter Visit Diagnoses Not on filedocumented in this encounter Care Teams Nephrology Nurse Relationship Specialty [place] [address] [place] [address] PCP - General 10/06/01 10/12/12 [place] [address] [place] [address] PCP - General 10/13/12 10/15/18 [facility] [address] [place] [address] PCP - General 10/16/18 12/28/18 [place] [address] [place] [address] PCP - General Cardiology 12/29/18 documented as of this encounter
--- OUTSIDE RECORDS SUMMARY | 2024-10-18 06:08 | XMS_ITS | Encounter Summary ---
Author Organization [facility] Address [address] [place] [address] Care Team Providers Care General Matcher Name Role Phone Thee Thomson MD Primary Care Provider Deborah Fan MD Primary Care Provider [phone] [facility] Primary Care Provider Rubi Castro MD Primary Care Provider [phone] Encounter Details Date Type Department Care Team (Late st Contact Info) Description 08/12/2008 [facility] [address] [place] [phone] [facility] Social History Tobacco Use Types Packs/Day Years Used Date Smoking Tobacco: Never Alcohol Use Standard Drinks/Week Comments No 0 (1 standard drink = 0.6 oz pur e alcohol) Comments No Sex and Gender Information Value Date Recorded Sex Assigned at Not on file 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 Gender Identity Not on file Sexual Orientation Not on file documented as of this encounter Plan of Treatment Not on file documented as of this encounter Visit Diagnoses Not on filedocumented in this encounter Care Teams General Matcher Relationship Specialty Start Date [place]e [place] [id number] [place] [address] [id number] PCP - General 10/06/01 10/12/12 [place] [address] [place] [address] PCP - General 10/13/12 10/15/18 [facility] [address] [place] [address] PCP - General 10/16/18 12/28/18 [place] [address] [place] [address] PCP - General Cardiology 12/29/18 documented as of this encounter
--- OUTSIDE RECORDS SUMMARY | 2024-10-18 06:08 | XMS_ITS | Clinical Summary ---
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
--- OUTSIDE RECORDS SUMMARY | 2024-10-18 06:08 | XMS_ITS | Encounter Summary ---
Author Organization [facility] Address [address] [place] [address] Care Team Providers Care Camp Counselor Name Role Phone Thee Thomson MD Primary Care Provider [phone] Deborah Fan MD Primary Care Provider [phone] [facility] Primary Care Provider Rubi Castro MD Primary Care Provider [phone] Encounter Details Date Type Department Care Team (Late st Contact Info) Description 10/18/2010 [facility] Medical Advice [facility] [address] [place] [phone] Homa Connolly, LILIAM Social History Tobacco Use Types Packs/Day Years Used Date Smoking Tobacco: Never Alcohol Use Standard Drinks/Week Comments No 0 (1 standard drink = 0.6 oz pur e alcohol) Comments No Sex and Gender Information Value Date Recorded Sex Assigned at Not on file 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 Gender Identity Not on file Sexual Orientation Not on file documented as of this encounter Plan of Treatment Not on file documented as of this encounter Visit Diagnoses Not on filedocumented in this encounter Care Teams Camp Counselor Relationship Specialty Start Date [place] Thee Thomson [place] [id number] [place] [phone] PCP - General 10/06/01 10/12/12 [place] [address] [place] [address] PCP - General 10/13/12 10/15/18 [facility] [address] [place] [address] PCP - General 10/16/18 12/28/18 [place] [address] [place] [address] PCP - General Cardiology 12/29/18 documented as of this encounter
[2024-10-18] MEDS: METHYLPREDNISOLONE SOD SUCC 62.5 MG/ML (125) 125 MG IVP (06:09)
[2024-10-18] MEDS: FAMOTIDINE 10 MG/ML inj 20 MG IVP (06:12)
[2024-10-18] MEDS: 0.9 % SODIUM CHLORIDE 250 ml 250 ML IV (06:30)
--- NOTE | 2024-10-18 06:38 | ED.ALLEREA ---
HPI - Allergic Reaction General Date Seen: 10/18/24 Chief complaint: Allergic Reaction Stated complaint: angio edema Time Seen by Provider: 10/18/24 06:11 Source: patient and family Mode of arrival: EMS Limitations: language barrier and physical limitation History of Present Illness HPI narrative: Patient is an 88-year-old female who was brought in by ambulance with concerns of tongue swelling and difficulty breathing. For arthritis pain in her back she took some ibuprofen at about 2:00 a.m. and started to develop swelling in her tongue and throat within an hour. She had a similar episode on September 02 and her daughter believes that she did take ibuprofen before that episode as well. She was treated in the ER with oral medication and rapidly improved. Initial history is difficult to language barrier but she may have taken a dose steroid prior to calling the ambulance. Her oxygen saturation has been okay. She has been drooling because of the massive tongue swelling. She denies pain or fever. Related Data Home Medications ?Medication ?Instructions ?Recorded ?Confirmed bumetanide 1 mg tablet 1 mg PO DAILY 09/02/24 10/18/24 carvedilol 12.5 mg tablet 12.5 mg PO BID 09/02/24 10/18/24 eplerenone 25 mg tablet 25 mg PO DAILY 09/02/24 10/18/24 hydroxyzine HCl 25 mg tablet 25 - 50 mg PO anxiety 10/18/24 Previous Rx's ?Medication ?Instructions ?Recorded methylprednisolone 4 mg tablets in See Rx Instructions PO .COMPLEX 09/02/24 a dose pack (Medrol (Rubens)) #21 ea epinephrine 0.3 mg/0.3 mL 0.3 mg (0.3 mL) IM Q5-15M PRN #2 ea 10/18/24 injection, auto-injector (EpiPen) hydroxyzine HCl 25 mg tablet 25 mg PO QID PRN #30 tabs 10/18/24 prednisone 50 mg tablet 50 mg PO DAILY #5 tabs 10/18/24 Allergies Allergy/AdvReac Type Severity Reaction Status Date / Time ibuprofen Allergy Severe Swelling Verified 10/18/24 06:31 of Lip/Tongue/Throat Review of Systems Narrative Review of systems is outlined above otherwise noted to be negative. This episode and the one in August ideally episodes of allergic reaction that she has had. Unclear who her local doctor is. PFSH PFSH Social History Smoking Status: Former smoker Second hand tobacco smoke exposure: No How often do you have a drink containing alcohol: never How often do you have six or more drinks on one occasion: Never AUDIT-C Alcohol total score: 0 Non-prescribed substance use: denies use Exam Narrative: Exam Narrative: Vitals noted. HEENT: Conjunctiva clear. Tympanic membranes are pearly white bilaterally. Posterior pharynx is difficult to examine due to massive tongue swelling. Her tongue feels her mouth with swelling extending into the subglottic area. She has normal range of motion of the neck. No carotid bruit. Lungs: She is not tachypneic. Coarse but Clear to auscultation in all [place]. No wheezes. Heart: Tachycardic, Regular rate and rhythm without murmur. Abdomen: Soft and nontender. No guarding, rigidity, rebound. Bowel sounds are normal. No palpable masses. Extremities: No cyanosis or edema. Good distal pulses. Skin: No abnormalities noted of the exposed skin. Neurologic: Awake, alert. Neurologic exam is nonfocal. Const: Vital Signs, click to edit/add: Vital Signs - 24 hr 10/18/24 06:16 10/18/24 06:20 10/18/24 06:21 Temperature 97.4 F L Pulse Rate 59 L 60 Pulse Rate [Pulse Oximeter] 58 L Respiratory Rate 18 20 Blood Pressure 179/117 H Blood Pressure [Ri ght Upper Arm] 179/117 H Pulse Oximetry 96 99 98 Oxygen Delivery Me thod Room Air 10/18/24 06:30 10/18/24 06:31 10/18/24 06:32 Temperature Pulse Rate 57 L 60 60 Pulse Rate [Pulse Oximeter] Respiratory Rate 20 20 20 Blood Pressure 180/80 H Blood Pressure [Ri ght Upper Arm] Pulse Oximetry 100 99 99 Oxygen Delivery Me thod 10/18/24 06:45 10/18/24 06:47 10/18/24 07:00 Temperature Pulse Rate 60 60 63 Pulse Rate [Pulse Oximeter] Respiratory Rate 23 16 12 Blood Pressure 183/82 H Blood Pressure [Ri ght Upper Arm] Pulse Oximetry 98 99 100 Oxygen Delivery Me thod 10/18/24 07:03 10/18/24 07:15 Temperature Pulse Rate 61 60 Pulse Rate [Pulse Oximeter] Respiratory Rate 11 L 13 Blood Pressure 153/54 H Blood Pressure [Ri ght Upper Arm] Pulse Oximetry 99 98 Oxygen Delivery Me thod Course Course ED Course: Patient brought in by EMS with lights and sirens. There is an IV in her left antecubital area. We obtained a 2nd IV on the right. CBC and BMP are drawn. She has immediately given an EpiPen 0.3 mg IM, Solu-Medrol 125 mg IV, Benadryl 25 mg IV, famotidine 20 mg IV. She is maintaining her airway and is vitally stable. I am suspicious that ibuprofen is the cause of her reaction. No history of FORREST-inhibitor use. Reevaluation(s) Reevaluation #1: CBC and BMP are unremarkable. She was given a 2nd dose of Benadryl 25 mg IV. Her tongue swelling has improved dramatically. There is still a layer of edema but she is able to speak and handles her own oral secretions. No shortness of breath or wheezing. Vital Signs Vital signs: Initial Vital Signs Pulse Rate 59 L 10/18/24 06:16 Pulse Oximetry 96 10/18/24 06:16 Vital Signs Pulse Rate 59 L 10/18/24 06:16 Pulse Oximetry 96 10/18/24 06:16 Temperature 97.4 F L 10/18/24 06:21 Pulse Rate 60 10/18/24 07:15 Respiratory Rate 13 10/18/24 07:15 Blood Pressure 153/54 H 10/18/24 07:03 Pulse Oximetry 98 10/18/24 07:15 Oxygen Delivery Method Room Air 10/18/24 06:21 Medications Administered Medications: Generic Name Dose Route Start Last Admin Trade Name Freq PRN Reason Stop Dose Admin Sodium Chloride 250 mls @ 250 mls/hr 10/18/24 07:10 10/18/24 07:13 0.9 % Sodium Chloride 250 Ml IV 10/18/24 08:09 Infused .Q1H ONE Infusion Discontinued Medications Generic Name Dose Route Start Last Admin Trade Name Freq PRN Reason Stop Dose Admin Diphenhydramine HCl 25 mg 10/18/24 06:23 10/18/24 06:11 Diphenhydramine 50 Mg/Ml Inj IVP 10/18/24 06:24 25 mg ONCE ONE Administration Epinephrine HCl 0.3 mg 10/18/24 06:37 10/18/24 06:06 Epinephrine 0.3 Mg Pen IM 10/18/24 06:38 0.3 mg ONCE ONE Administration Famotidine 20 mg 10/18/24 06:23 10/18/24 06:12 Famotidine 10 Mg/Ml Inj IVP 10/18/24 06:24 20 mg ONCE ONE Administration Methylprednisolone Sodium Succinate 125 mg 10/18/24 06:23 10/18/24 06:09 Methylprednisolone Sod Succ 62.5 Mg/Ml (125) IVP 10/18/24 06:24 125 mg ONCE ONE Administration MDM - Allergic Reaction Lab Data Labs: Lab Results 10/18/24 Range/Units 07:02 WBC 14.22 H (4.50-11.00) K/uL RBC 4.01 (4.00-5.20) m/uL Hgb 13.6 (12.0-16.0) gm/dL Hct 41.5 (33.0-51.0) % MCV 104 H (80-100) fL MCH 34 (26-34) pg MCHC 33 (32-36) gm/dL RDW Coeff of Eunice 11.1 L (11.5-15.5) % Plt Count 278 (140-440) K/uL Neut % (Auto) 72.1 H (42.0-72.0) % Lymph % (Auto) 24.8 (20-44) % [place] % (Auto) 2.7 (0.0-11.0) % Eos % (Auto) 0.2 (0.0-7.0) % Baso % (Auto) 0.1 (0.0-3.0) % Neut # (Auto) 10.30 H (1.7-7.0) K/uL Lymph # (Auto) 3.50 H (0.90-2.90) K/uL [place] # (Auto) 0.40 (0.00-0.90) K/UL Eos # (Auto) 0.00 (0.00-0.50) K/uL Baso # (Auto) 0.00 (0.00-0.30) K/uL Abs Immat Gran (auto) 0.00 (0.00-0.30) K/uL Imm/Tot Granulo (auto) 0.1 % Sodium 136 (135-149) mmol/L Potassium 4.2 (3.6-5.1) mmol/L Chloride 99 (96-114) mmol/L Carbon Dioxide 28 (20-32) mmol/L Anion Gap 9 (7-15) mEq/L BUN 22 (7-30) mg/dL Creatinine 0.9 (0.5-1.5) mg/dL Estimated Creat Clear 30.47 Estimated GFR 62 ml/min Glucose 125 H (60-115) mg/dL Calcium 9.9 (8.4-10.6) mg/dL Discharge Plan Discharge Clinical Impression: Angioedema Patient Disposition: Home, Self-Care Condition: Improved Additional Instructions: ABSOLUTELY NO IBUPROFEN! Prednisone 50 mg daily x 5 days. Stop Methylprednisolone. Hydroxyzine 25 mg every 6 hours as needed for tongue or lip swelling. Follow up in the clinic in 3-5 days. Keep Epipen available for future reactions. Return to ER if swelling returns Prescriptions: New hydroxyzine HCl 25 mg tablet 25 mg PO QID PRNQty: 30 0RF prednisone 50 mg tablet 50 mg PO DAILY Qty: 5 0RF epinephrine [EpiPen] 0.3 mg/0.3 mL auto-injector 0.3 mg IM Q5-15M PRNQty: 2 0RF Rx Instructions: do not exceed 3 doses per episode No Action carvedilol 12.5 mg tablet 12.5 mg PO BID bumetanide 1 mg tablet 1 mg PO DAILY eplerenone 25 mg tablet 25 mg PO DAILY methylprednisolone [Medrol (Rubens)] 4 mg tablets,dose pack See Rx Instructions .ROUTE .COMPLEX Qty: 21 0RF Rx Instructions: orally per package directions hydroxyzine HCl 25 mg tablet 25 - 50 mg PO Follow Up/Referrals: Provider,Not a Local [Primary Care Provider, Family Practice] Stand Alone Forms: MyHealth Info Instructions
[2024-10-18 07:15] LABS: Hematocrit* 41.5 % (33.0-51.0); Hemoglobin* 13.6 gm/dL (12.0-16.0); Immature Granulocytes Pct Auto 0.1 %; Mean Corpuscular HGB Conc 33 gm/dL (32-36); Mean Corpuscular Hemoglobin 34 pg (26-34); Mean Corpuscular Volume 104 fL (80-100); RDW Coefficient of Variation % 11.1 % (11.5-15.5); Red Blood Count* 4.01 m/uL (4.00-5.20); White Blood Count* 14.22 K/uL (4.50-11.00)
[2024-10-18 07:25] LABS: Immature Granulocytes Abs Auto 0.00 K/uL (0.00-0.30); Lymphocytes Absolute Auto 3.50 K/uL (0.90-2.90); Slide Review Reflex No
[2024-10-18 07:30] LABS: Chloride* 99 mmol/L (96-114); Sodium* 136 mmol/L (135-149)
[2024-10-18 07:31] LABS: Potassium* 4.2 mmol/L (3.6-5.1)
[2024-10-18 07:33] LABS: Blood Urea Nitrogen* 22 mg/dL (7-30); Creatinine* 0.9 mg/dL (0.5-1.5); Est. Creatinine Clearance* 30.47; Estimated Glomerular Filt Rate 62 ml/min
[2024-10-18 07:34] LABS: Anion Gap 9 mEq/L (7-15); Calcium* 9.9 mg/dL (8.4-10.6); Carbon Dioxide* 28 mmol/L (20-32); Glucose* 125 mg/dL (60-115)
--- OUTSIDE RECORDS SUMMARY | 2024-11-27 19:00 | XMS_ITS | Clinical Summary ---
Author Organization [facility] ([facility]) Address [address] [place] [address], [address] [place] [address] Phone Care Team Providers Care Core Drilling Supervisor Name Role Phone TRIPP HOOD Unavailable Unavailable NAMAN CROZER OPERATOR, ALLIE Unavailable Unavailable OLENA PT, NATHAN Unavailable Unavailable ARTEMIO KNITTING SUPERVISOR, NICOLASA Unavailable Unavailable YARITZA OT, CLIVE Unavailable Unavailable EBENEZER RN, DORIS Unavailable Unavailable Payers Payer Name Policy Type Policy Number Effective Date Expira tion Date Problems Condition Name Condition Details Condition Category Status Onset Date Resolution Date Last Treatment Date Treating Clinician Comments PRIMARY GENERALIZED (OSTEO)ARTHR ITIS Active 09-30 00:00: 00 RHEUMATOID ARTHRITIS, UNSPECIFIED Active 09-30 00:00: 00 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 09-30 00:00: 00 UNSPECIFIED DIASTOLIC (CONGESTIVE) HEART FAILURE Active 09-30 00:00: 00 VITAMIN D DEFICIENCY, UNSPECIFIED Active 09-30 00:00: 00 ATHSCL HEART DISEASE OF [place] CORONARY ARTERY W/O ANG PCTRS Active 09-30 00:00: 00 RHEUMATIC MITRAL INSUFFICIENC Y Active 09-30 00:00: 00 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 09-30 00:00: 00 VENOUS INSUFFICIENC Y (CHRONIC) (PERIPHERAL) Active 09-30 00:00: 00 OTHER CHRONIC PAIN Active 09-30 00:00: 00 PRIMARY INSOMNIA Active 09-30 00:00: 00 SOCIAL EXCLUSION AND REJECTION Active 09-30 00:00: 00 Allergies, Adverse Reactions, Alerts Allergy Name Allergy Type Status Severity Reaction(s) Onset Date Inactive Date Treating Clinician Comments LOSARTAN Propensity to adverse reactions Active 09-30 16:26: 03 ACETAMINOPHE N Propensity to adverse reactions Active 09-30 16:26: 14 AMLODIPINE Propensity to adverse reactions Active 09-30 16:26: 28 CEPHALEXIN Propensity to adverse reactions Active 09-30 16:26: 48 COREG Propensity to adverse reactions Active 09-30 16:27: 05 STATINS HMG COA REDUCTASE INHI Propensity to adverse reactions Active 09-30 16:27: 21 IBUPROFEN Propensity to adverse reactions Active 09-30 16:27: 35 LISINOPRIL Propensity to adverse reactions Active 09-30 16:27: 47 Immunizations Ordered Immunization Name Filled Immunization Name Date Status Comments INFLUENZA, TIV (INACTIVATED) 2020-02-17 00:00:00 SHINGLES, TIV (INACTIVATED) 2014-09-12 00:00:00 PNEUMOCOCCAL (PPV), PPV 00:00:00 PNEUMOCOCCAL (PPV), PPV 00:00:00 SHINGLES, TIV (INACTIVATED) 2014-07-18 00:00:00 Vital Signs Vital Name Observation Time Observation Value Commen ts Temperature 2024-10-17 11:22:00.000 98.5 [degF] Temperature 2024-10-14 15:38:00.000 97.2 [degF] Temperature 2024-10-14 12:28:00.000 98 [degF] Temperature 2024-10-11 12:36:00.000 97.7 [degF] Temperature 2024-10-11 10:11:00.000 97.8 [degF] Temperature 2024-10-10 09:46:00.000 97.8 [degF] Temperature 2024-10-08 12:51:00.000 98.6 [degF] Temperature 2024-10-07 12:23:00.000 97.1 [degF] Temperature 2024-10-04 11:57:00.000 98.1 [degF] Temperature 2024-10-02 12:34:00.000 98 [degF] Temperature 2024-09-30 13:26:00.000 97.8 [degF] BMI (%) 2024-09-30 13:26:00.000 33 kg/m2 Height 2024-09-30 13:26:00.000 61 [in_us] Pulse 2024-10-17 11:22:00.000 57 /min Pulse 2024-10-14 15:38:00.000 53 /min Pulse 2024-10-14 12:28:00.000 72 /min Pulse 2024-10-11 12:36:00.000 64 /min Pulse 2024-10-11 10:11:00.000 70 /min Pulse 2024-10-10 09:46:00.000 70 /min Pulse 2024-10-08 12:51:00.000 75 /min Pulse 2024-10-07 12:23:00.000 72 /min Pulse 2024-10-04 11:57:00.000 56 /min Pulse 2024-10-02 12:34:00.000 63 /min Pulse 2024-09-30 13:26:00.000 64 /min O2 Saturation (%) 2024-10-17 11:22:00.000 96 % O2 Saturation (%) 2024-10-14 15:38:00.000 98 % O2 Saturation (%) 2024-10-08 12:51:00.000 96 % O2 Saturation (%) 2024-10-07 12:23:00.000 97 % O2 Saturation (%) 2024-10-04 11:57:00.000 98 % O2 Saturation (%) 2024-10-02 12:34:00.000 98 % O2 Saturation (%) 2024-09-30 13:26:00.000 97 % Respirations 2024-10-17 11:22:00.000 16 /min Respirations 2024-10-14 15:38:00.000 16 /min Respirations 2024-10-14 12:28:00.000 18 /min Respirations 2024-10-11 12:36:00.000 16 /min Respirations 2024-10-11 10:11:00.000 18 /min Respirations 2024-10-10 09:46:00.000 18 /min Respirations 2024-10-08 12:51:00.000 16 /min Respirations 2024-10-07 12:23:00.000 18 /min Respirations 2024-10-04 11:57:00.000 16 /min Respirations 2024-10-02 12:34:00.000 16 /min Respirations 2024-09-30 13:26:00.000 14 /min Weight (lbs) 2024-10-17 11:25:00.000 174 [lb_av] Weight (lbs) 2024-10-14 15:45:00.000 174 [lb_av] Weight (lbs) 2024-10-08 12:53:00.000 174 [lb_av] Weight (lbs) 2024-10-04 11:59:00.000 173 [lb_av] Weight (lbs) 2024-09-30 13:26:00.000 174.8 [lb_av] Systolic Blood Pressure 2024-10-17 11:22:00.000 120 mm [Hg] Systolic Blood Pressure 2024-10-14 15:38:00.000 139 mm [Hg] Systolic Blood Pressure 2024-10-14 12:28:00.000 120 mm [Hg] Systolic Blood Pressure 2024-10-11 12:36:00.000 116 mm [Hg] Systolic Blood Pressure 2024-10-11 10:11:00.000 108 mm [Hg] Systolic Blood Pressure 2024-10-10 09:46:00.000 118 mm [Hg] Systolic Blood Pressure 2024-10-08 12:51:00.000 128 mm [Hg] Systolic Blood Pressure 2024-10-07 12:23:00.000 131 mm [Hg] Systolic Blood Pressure 2024-10-04 11:57:00.000 110 mm [Hg] Systolic Blood Pressure 2024-09-30 13:26:00.000 117 mm [Hg] Diastolic Blood Pressure 2024-10-17 11:22:00.000 60 mm [Hg] Diastolic Blood Pressure 2024-10-14 15:38:00.000 82 mm [Hg] Diastolic Blood Pressure 2024-10-14 12:28:00.000 64 mm [Hg] Diastolic Blood Pressure 2024-10-11 12:36:00.000 64 mm [Hg] Diastolic Blood Pressure 2024-10-11 10:11:00.000 60 mm [Hg] Diastolic Blood Pressure 2024-10-10 09:46:00.000 62 mm [Hg] Diastolic Blood Pressure 2024-10-08 12:51:00.000 68 mm [Hg] Diastolic Blood Pressure 2024-10-07 12:23:00.000 65 mm [Hg] Diastolic Blood Pressure 2024-10-04 11:57:00.000 68 mm [Hg] Diastolic Blood Pressure 2024-09-30 13:26:00.000 61 mm [Hg] Plan of Care Planned Activity Planned Date Details Comments Future Scheduled Test SKILLED NU RSE TO EVALUATE AND DEVELOP PLAN OF CARE TO BE COUNTERSIGNED BY PHYSICIAN. SKILLED NURSE TO ASSESS/EVALUATE CO-MORBID CONDITIONS INCLUDING ARTHRITIS, HTN, CARDIOMEGALY, DJD OF KNEES, HLD, ANXIETY, DEPRESSION, CAD AND OTHER CONDITIONS THAT PRESENT THEMSELVES DURING THE COURSE OF THIS EPISODE TO IDENTIFY CHANGES AND INTERVENE TO MINIMIZE COMPLICATIONS. HOME HEALTH AGENCY MAY ACCEPT ORDERS FROM THE FOLLOWING PHYSICIANS AND THEIR ASSOCIATES: [facility] EMERGENCY PREPAREDNESS PLAN: REVIEWED EMERGENCY PREPAREDNESS PLAN, CLIENT WILL EVACUATE TO [facility] HOME EVACUATION PLAN IN THE EVENT OF AN EMERGENCY. ACUITY STATUS: WITHIN A WEEK POC SUMMARY: DOMINIC REEDER 10/17/2024 VERBAL ORDERS RECEIVED FROM MARK RICKETTS ON [facility] ON 10/17/2024 @ 1130AM OKAY TO DISCONTINUE BACTRIM CLIENT HAS FINISHED ABX THERAPY [code = SKILLED NURSE TO EVALUATE AND DEVELOP PLAN OF CARE TO BE COUNTERSIGNED BY PHYSICIAN. SKILLED NURSE TO ASSESS/EVALUATE CO-MORBID CONDITIONS INCLUDING ARTHRITIS, HTN, CARDIOMEGALY, DJD OF KNEES, HLD, ANXIETY, DEPRESSION, CAD AND OTHER CONDITIONS THAT PRESENT THEMSELVES DURING THE COURSE OF THIS EPISODE TO IDENTIFY CHANGES AND INTERVENE TO MINIMIZE COMPLICATIONS. HOME HEALTH AGENCY MAY ACCEPT ORDERS FROM THE FOLLOWING PHYSICIANS AND THEIR ASSOCIATES: [facility] EMERGENCY PREPAREDNESS PLAN: REVIEWED EMERGENCY PREPAREDNESS PLAN, CLIENT WILL EVACUATE TO [facility] HOME EVACUATION PLAN IN THE EVENT OF AN EMERGENCY. ACUITY STATUS: WITHIN A WEEK POC SUMMARY: DOMINIC REEDER 10/17/2024 VERBAL ORDERS RECEIVED FROM MARK RICKETTS ON [facility] ON 10/17/2024 @ 1130AM OKAY TO DISCONTINUE BACTRIM CLIENT HAS FINISHED ABX THERAPY] Future Scheduled Test SKILLED NU RSE TO PROVIDE INSTRUCTION IN ENERGY CONSERVATION TECHNIQUES DESIGNED TO MAXIMIZE PATIENT'S PRODUCTIVITY WITH FUNCTIONAL ACTIVITIES. [code = SKILLED NURSE TO PROVIDE INSTRUCTION IN ENERGY CONSERVATION TECHNIQUES DESIGNED TO MAXIMIZE PATIENT'S PRODUCTIVITY WITH FUNCTIONAL ACTIVITIES.] Future Scheduled Test SKILLED NU RSE TO INSTRUCT ON INFECTION CONTROL MEASURES [code = SKILLED NURSE TO INSTRUCT ON INFECTION CONTROL MEASURES] Future Scheduled Test SKILLED NU RSE TO INSTRUCT ON ANTIBIOTIC USE AND MONITORING MEASURES. [code = SKILLED NURSE TO INSTRUCT ON ANTIBIOTIC USE AND MONITORING MEASURES.] Future Scheduled Test SKILLED NU RSE TO PERFORM MULTIFACTOR FALL RISK ASSESSMENT AND IMPLEMENT INTERVENTIONS TO DECREASE RISK OF FALLS. SKILLED NURSE TO INSTRUCT ON HOME SAFETY, IMPACT OF POLYPHARMACY, ENVIRONMENTAL SAFETY, AND FALL PREVENTION. [code = SKILLED NURSE TO PERFORM MULTIFACTOR FALL RISK ASSESSMENT AND IMPLEMENT INTERVENTIONS TO DECREASE RISK OF FALLS. SKILLED NURSE TO INSTRUCT ON HOME SAFETY, IMPACT OF POLYPHARMACY, ENVIRONMENTAL SAFETY, AND FALL PREVENTION.] Future Scheduled Test SKILLED NU RSE TO OBSERVE AND ASSESS PATIENT WITH GENERALIZED DEPRESSION. ASSESS NEED FOR MEDICATION, MEDICATION CHANGES AND POTENTIAL NEED FOR REFERRAL TO PROVIDE COUNSELING AND ASSISTANCE WITH MANAGING DEPRESSION. [code = SKILLED NURSE TO OBSERVE AND ASSESS PATIENT WITH GENERALIZED DEPRESSION. ASSESS NEED FOR MEDICATION, MEDICATION CHANGES AND POTENTIAL NEED FOR REFERRAL TO PROVIDE COUNSELING AND ASSISTANCE WITH MANAGING DEPRESSION.] Future Scheduled Test SKILLED NU RSE TO PROVIDE AND INSTRUCT REGARDING FALL PREVENTION INTERVENTIONS. [code = SKILLED NURSE TO PROVIDE AND INSTRUCT REGARDING FALL PREVENTION INTERVENTIONS.] Future Scheduled Test SKILLED NU RSE TO PROVIDE/INSTRUCT REGARDING INTERVENTION(S) TO MONITOR AND MITIGATE PAIN. [code = SKILLED NURSE TO PROVIDE/INSTRUCT REGARDING INTERVENTION(S) TO MONITOR AND MITIGATE PAIN.] Future Scheduled Test SKILLED NU RSE TO DEVELOP STRATEGIES TO ASSIST PATIENT IN ABILITY TO TAKE ALL MEDICATIONS RELIABLY AND SAFELY INCLUDING ADMINISTRATION OF THE CORRECT DOSAGE AT APPROPRIATE TIMES AND INTERVALS [code = SKILLED NURSE TO DEVELOP STRATEGIES TO ASSIST PATIENT IN ABILITY TO TAKE ALL MEDICATIONS RELIABLY AND SAFELY INCLUDING ADMINISTRATION OF THE CORRECT DOSAGE AT APPROPRIATE TIMES AND INTERVALS] Future Scheduled Test SKILLED NU RSE TO PERFORM OBSERVATION/ASSESSMENT OF GENITOURINARY STATUS AND INTERVENE TO MINIMIZE COMPLICATIONS OF DISEASE PROCESS. SKILLED NURSE TO PROVIDE INSTRUCTION REGARDING MANAGEMENT OF DISEASE PROCESS, INCLUDING PATHOPHYSIOLOGY, NUTRITIONAL/FLUID REQUIREMENTS AND MEDICATION REGIMEN. [code = SKILLED NURSE TO PERFORM OBSERVATION/ASSESSMENT OF GENITOURINARY STATUS AND INTERVENE TO MINIMIZE COMPLICATIONS OF DISEASE PROCESS. SKILLED NURSE TO PROVIDE INSTRUCTION REGARDING MANAGEMENT OF DISEASE PROCESS, INCLUDING PATHOPHYSIOLOGY, NUTRITIONAL/FLUID REQUIREMENTS AND MEDICATION REGIMEN.] Future Scheduled Test HOME [facility]ALT H AIDE SERVICE FOR ASSISTANCE WITH PERSONAL CARE, HYGIENE AND ACTIVITIES OF DAILY LIVING. [code = HOME HEALTH AIDE SERVICE FOR ASSISTANCE WITH PERSONAL CARE, HYGIENE AND ACTIVITIES OF DAILY LIVING.] Future Scheduled Test VICKY LANE RN 09/30/2024 VO VIA AGENT RN FOR RICK FIGUEROA. APPROVED FDC VISITS 1XWK [id number] W/ 3 PRN VISITS. CLASSIFIER 1XWK FOR 8WKS. [code = VICKY FERRARA RN 09/30/2024 VO VIA AGENT RN FOR RICK FIGUEROA. APPROVED FDC VISITS 1XWK [id number] W/ 3 PRN VISITS. CLASSIFIER 1XWK FOR 8WKS.] Future Scheduled Test PHYSICAL T HERAPIST TO PROVIDE/INSTRUCT REGARDING INTERVENTION(S) TO MONITOR AND MITIGATE PAIN. PHYSICAL THERAPIST TO INSTRUCT ON INFECTION CONTROL MEASURES. PHYSICAL THERAPIST TO EVALUATE/ASSESS AND DEVELOP PHYSICAL THERAPY PLAN OF CARE TO BE SIGNED BY THE PHYSICIAN. POC SUMMARY: 88 YO FEMALE CLIENT REFERRED FOR PT EVAL AND TREAT FROM PCP SECONDARY TO R SHOULDER PAIN. PMH INCLUDES: CHRONIC PAIN R SHOULDER, PAIN IN B KNEES, HEART FAILURE, HTN, HLD, ANXIETY, AND DEPRESSION. CLIENT LIVES WITH SPOUSE IN A [facility] WITH 1 STEP TO ENTER WITHOUT RAILING THEN 15 STAIRS TO BEDROOM/BATHROOM WITH UNILATERAL RAILING. CLIENT REPORTS THE FOLLOWING PLOF: INDEP ADLS, ASSIST FROM FAMILY FOR IADLS (DTG MANAGES MEDS), AND MIR MOBILITY WITH SEC. CURRENTLY, CONTINUES TO USE CANE BUT FAMILY IS HOPING SHE'LL USE NEW 2WW (ADJUSTED TODAY AND EDUCATED ON BENEFITS FOR SUPPORT AND PAIN MANAGEMENT). CLIENT SOMEWHAT CONFUSED REGARDING PURPOSE AND BENEFIT OF ONGOING PT BUT AGREEABLE TO ONGOING SESSIONS. SHE IS UNABLE TO STATE A FUNCTIONAL GOAL BUT ADMITS THAT STAIR NEGOTIATION (ESPECIALLY ASCENDING) IS A CHALLENGE. REPORTS SHE PRIMARILY USES A BEDSIDE COMMODE FOR TOILETING. PAIN HAS IMPROVED BUT STILL LIMITS FUNCTION. EQUIPMENT PRESENT INCLUDES: SEC, 2WW, TOILET SEAT RISER, TUB/SHOWER, AND SHOWER CHAIR. CLIENT PRESENTS AT PT EVALUATION WITH DEFICITS IN FUNCTIONAL STRENGTH, BALANCE, PAIN MANAGEMENT, AND MOBILITY INDEP EVIDENCED BY THE FOLLOWING OBJECTIVE MEASURES - 8/10 MAHC-10 SCORE, 15/28 TINETTI SCORE, 76-S TUG SCORE, 2 REPS WITH UE ASSIST IN 30-S CHAIR RISE TEST, APPROXIMATELY 60 FT AMB DISTANCE TOLERATED, AND NEED FOR MODA WITH FUNCTIONAL MOBILITY. CLIENT WOULD BENEFIT FROM ONGOING SKILLED PT INTERVENTIONS 2W3 FOLLOWING TODAY'S EVALUATION TO ADDRESS AREAS OF DEFICIT AND TO PROGRESS TOWARDS STGS AND LTGS FOR REDUCED DEPENDENCE ON CAREGIVERS, MAXIMUM FUNCTIONAL INDEP, AND MAXIMUM QUALITY OF LIFE. PHYSICAL THERAPY TO ESTABLISH/UPGRADE HOME EXERCISE PROGRAM AND PROVIDE THERAPEUTIC EXERCISES AND SOFT TISSUE/JOINT MOBILIZATION DESIGNED TO RESTORE FUNCTIONAL STRENGTH AND ROM. PHYSICAL THERAPY TO PROVIDE BALANCE TRAINING TO REDUCE FALL RISK DURING FUNCTIONAL ACTIVITIES. PHYSICAL THERAPY TO EVALUATE GAIT AND PROVIDE GAIT TRAINING USING APPROPRIATE ASSISTIVE DEVICE TO ENSURE PATIENT SAFETY. THE LICENSED PROFESSIONAL WHOSE SIGNATURE APPEARS BELOW ATTESTS THAT THESE ORDERS WERE REQUESTED ON 10/02/24 [code = PHYSICAL THERAPIST TO PROVIDE/INSTRUCT REGARDING INTERVENTION(S) TO MONITOR AND MITIGATE PAIN. PHYSICAL THERAPIST TO INSTRUCT ON INFECTION CONTROL MEASURES. PHYSICAL THERAPIST TO EVALUATE/ASSESS AND DEVELOP PHYSICAL THERAPY PLAN OF CARE TO BE SIGNED BY THE PHYSICIAN. POC SUMMARY: 88 YO FEMALE CLIENT REFERRED FOR PT EVAL AND TREAT FROM PCP SECONDARY TO R SHOULDER PAIN. PMH INCLUDES: CHRONIC PAIN R SHOULDER, PAIN IN B KNEES, HEART FAILURE, HTN, HLD, ANXIETY, AND DEPRESSION. CLIENT LIVES WITH SPOUSE IN A [facility] WITH 1 STEP TO ENTER WITHOUT RAILING THEN 15 STAIRS TO BEDROOM/BATHROOM WITH UNILATERAL RAILING. CLIENT REPORTS THE FOLLOWING PLOF: INDEP ADLS, ASSIST FROM FAMILY FOR IADLS (DTG MANAGES MEDS), AND MIR MOBILITY WITH SEC. CURRENTLY, CONTINUES TO USE CANE BUT FAMILY IS HOPING SHE'LL USE NEW 2WW (ADJUSTED TODAY AND EDUCATED ON BENEFITS FOR SUPPORT AND PAIN MANAGEMENT). CLIENT SOMEWHAT CONFUSED REGARDING PURPOSE AND BENEFIT OF ONGOING PT BUT AGREEABLE TO ONGOING SESSIONS. SHE IS UNABLE TO STATE A FUNCTIONAL GOAL BUT ADMITS THAT STAIR NEGOTIATION (ESPECIALLY ASCENDING) IS A CHALLENGE. REPORTS SHE PRIMARILY USES A BEDSIDE COMMODE FOR TOILETING. PAIN HAS IMPROVED BUT STILL LIMITS FUNCTION. EQUIPMENT PRESENT INCLUDES: SEC, 2WW, TOILET SEAT RISER, TUB/SHOWER, AND SHOWER CHAIR. CLIENT PRESENTS AT PT EVALUATION WITH DEFICITS IN FUNCTIONAL STRENGTH, BALANCE, PAIN MANAGEMENT, AND MOBILITY INDEP EVIDENCED BY THE FOLLOWING OBJECTIVE MEASURES - 8/10 MAHC-10 SCORE, 15/28 TINETTI SCORE, 76-S TUG SCORE, 2 REPS WITH UE ASSIST IN 30-S CHAIR RISE TEST, APPROXIMATELY 60 FT AMB DISTANCE TOLERATED, AND NEED FOR MODA WITH FUNCTIONAL MOBILITY. CLIENT WOULD BENEFIT FROM ONGOING SKILLED PT INTERVENTIONS 2W3 FOLLOWING TODAY'S EVALUATION TO ADDRESS AREAS OF DEFICIT AND TO PROGRESS TOWARDS STGS AND LTGS FOR REDUCED DEPENDENCE ON CAREGIVERS, MAXIMUM FUNCTIONAL INDEP, AND MAXIMUM QUALITY OF LIFE. PHYSICAL THERAPY TO ESTABLISH/UPGRADE HOME EXERCISE PROGRAM AND PROVIDE THERAPEUTIC EXERCISES AND SOFT TISSUE/JOINT MOBILIZATION DESIGNED TO RESTORE FUNCTIONAL STRENGTH AND ROM. PHYSICAL THERAPY TO PROVIDE BALANCE TRAINING TO REDUCE FALL RISK DURING FUNCTIONAL ACTIVITIES. PHYSICAL THERAPY TO EVALUATE GAIT AND PROVIDE GAIT TRAINING USING APPROPRIATE ASSISTIVE DEVICE TO ENSURE PATIENT SAFETY. THE LICENSED PROFESSIONAL WHOSE SIGNATURE APPEARS BELOW ATTESTS THAT THESE ORDERS WERE REQUESTED ON 10/02/24] Future Scheduled Test NATHAN HYATT PT 10/03/2024 OK FOR PT POC REQUESTED (2W3) PER CLINIC NURSE ON BEHALF OF DR HOOD. [code = NATHAN HYATT PT 10/03/2024 OK FOR PT POC REQUESTED (2W3) PER CLINIC NURSE ON BEHALF OF DR HOOD. ] Future Scheduled Test OCCUPATION AL THERAPIST TO PROVIDE AND INSTRUCT REGARDING FALL PREVENTION INTERVENTIONS. OCCUPATIONAL THERAPIST TO PROVIDE/INSTRUCT REGARDING INTERVENTION(S) TO MONITOR AND MITIGATE PAIN. OCCUPATIONAL THERAPIST TO INSTRUCT ON INFECTION CONTROL MEASURES. OCCUPATIONAL THERAPIST TO EVALUATE PATIENT FOR OT SERVICES AND DEVELOP PLAN OF CARE PLAN OF CARE TO BE SIGNED BY THE PHYSICIAN. OK FOR OT SERVICES 1W1, 2W2, 1W1 PER ASSOCIATE OF DR HOOD ON 10/07/24 AT 8:50AM OCCUPATIONAL THERAPY TO ESTABLISH/UPGRADE HOME EXERCISE PROGRAM AND PROVIDE THERAPEUTIC EXERCISES AND/OR SOFT TISSUE/JOINT MOBILIZATION DESIGNED TO RESTORE FUNCTIONAL STRENGTH AND ROM. OK TO USE THERABAND, THERAPUTTY, KINESIOTAPE, OR MANUAL TECHNIQUES. OCCUPATIONALTHERAPIST TO PROVIDE INSTRUCTION REGARDING PAIN CONTROL METHODOLOGIES INCLUDING PHARMACOLOGIC AND NON-PHARMACOLOGIC METHODS. OCCUPATIONAL THERAPIST TO PROVIDE PATIENT / CAREGIVER WITH ADL TRAINING TO INCREASE INDEPENDENCE. [code = OCCUPATIONAL THERAPIST TO PROVIDE AND INSTRUCT REGARDING FALL PREVENTION INTERVENTIONS. OCCUPATIONAL THERAPIST TO PROVIDE/INSTRUCT REGARDING INTERVENTION(S) TO MONITOR AND MITIGATE PAIN. OCCUPATIONAL THERAPIST TO INSTRUCT ON INFECTION CONTROL MEASURES. OCCUPATIONAL THERAPIST TO EVALUATE PATIENT FOR OT SERVICES AND DEVELOP PLAN OF CARE PLAN OF CARE TO BE SIGNED BY THE PHYSICIAN. OK FOR OT SERVICES 1W1, 2W2, 1W1 PER ASSOCIATE OF DR HOOD ON 10/07/24 AT 8:50AM OCCUPATIONAL THERAPY TO ESTABLISH/UPGRADE HOME EXERCISE PROGRAM AND PROVIDE THERAPEUTIC EXERCISES AND/OR SOFT TISSUE/JOINT MOBILIZATION DESIGNED TO RESTORE FUNCTIONAL STRENGTH AND ROM. OK TO USE THERABAND, THERAPUTTY, KINESIOTAPE, OR MANUAL TECHNIQUES. OCCUPATIONALTHERAPIST TO PROVIDE INSTRUCTION REGARDING PAIN CONTROL METHODOLOGIES INCLUDING PHARMACOLOGIC AND NON-PHARMACOLOGIC METHODS. OCCUPATIONAL THERAPIST TO PROVIDE PATIENT / CAREGIVER WITH ADL TRAINING TO INCREASE INDEPENDENCE.] Encounters Start Date/Time End Date/Time Encounter Type Admission Type Attending [facility] Care Department Encounter ID [id number] 00:00:00 2024-11-28 00:00:00 Unknown NEW ADMISSION ALLIE FLORENCE, NATHAN ULLOA, NICOLASA VIGIL, DORIS ADHIKARI [facility] [id number]
--- OUTSIDE RECORDS SUMMARY | 2024-11-27 19:00 | XMS_ITS | Clinical Summary ---
Author Organization [facility] ([facility]) Address [address] [place] [address], [address] [place] [address] Phone Care Team Providers Care Teacher Ballet Name Role Phone TRIPP HOOD Unavailable Unavailable NAMAN ICE GUARD SKATING RINK, ALLIE Unavailable Unavailable OLENA PT, NATHAN Unavailable Unavailable ARTEMIO COMMUNICATIONS DESIGNER, NICOLASA Unavailable Unavailable YARITZA OT, CLIVE Unavailable [...] 09-30 00:00: 00 ATHSCL HEART DISEASE OF [place] CORONARY ARTERY W/O ANG PCTRS Active 09-30 [...] FROM THE FOLLOWING PHYSICIANS AND THEIR ASSOCIATES: [facility] EMERGENCY PREPAREDNESS PLAN: REVIEWED EMERGENCY PREPAREDNESS PLAN, CLIENT WILL EVACUATE TO [facility] HOME EVACUATION PLAN IN THE EVENT OF AN EMERGENCY. ACUITY STATUS: WITHIN A WEEK POC SUMMARY: DOMINIC REEDER 10/17/2024 VERBAL ORDERS RECEIVED FROM MARK RICKETTS ON [facility] ON 10/17/2024 @ 1130AM OKAY TO DISCONTINUE [...] FROM THE FOLLOWING PHYSICIANS AND THEIR ASSOCIATES: [facility] EMERGENCY PREPAREDNESS PLAN: REVIEWED EMERGENCY PREPAREDNESS PLAN, CLIENT WILL EVACUATE TO [facility] HOME EVACUATION PLAN IN THE EVENT OF AN EMERGENCY. ACUITY STATUS: WITHIN A WEEK POC SUMMARY: DOMINIC REEDER 10/17/2024 VERBAL ORDERS RECEIVED FROM MARK RICKETTS ON [facility] OF [facility] ON 10/17/2024 @ 1130AM OKAY TO DISCONTINUE [...] VIA AGENT RN FOR RICK FIGUEROA. APPROVED SENIOR LIVING VISITS 1XWK [id number] W/ 3 PRN VISITS. MANAGER COST 1XWK FOR 8WKS. [code = VICKY FERRARA RN 09/30/2024 VO VIA AGENT RN FOR RICK FIGUEROA. APPROVED SENIOR LIVING VISITS 1XWK [id number] W/ 3 PRN VISITS. MANAGER COST 1XWK FOR 8WKS.] Future Scheduled Test PHYSICAL [...] DEPRESSION. CLIENT LIVES WITH SPOUSE IN A [facility] WITH 1 STEP TO ENTER WITHOUT [...] DEPRESSION. CLIENT LIVES WITH SPOUSE IN A [facility] WITH 1 STEP TO ENTER WITHOUT [...] End Date/Time Encounter Type Admission Type Attending [facility] Care Department Encounter ID [id number] 00:00:00 2024-11-28 00:00:00 Unknown NEW ADMISSION ALLIE FLORENCE, NATHAN ULLOA, NICOLASA VIGIL, DORIS ADHIKARI [facility] [id number]
--- OUTSIDE RECORDS SUMMARY | 2024-11-27 19:00 | XMS_ITS | Clinical Summary ---
Author Organization [facility] ([facility]) Address [address] [place] [address], [address] [place] [address] Phone Care Team Providers Care Clinical Product Specialist Name Role Phone TRIPP HOOD Unavailable Unavailable NAMAN INSTRUCTOR WASTEWATER TREATMENT PLANT, ALLIE Unavailable Unavailable OLENA PT, NATHAN Unavailable Unavailable ARTEMIO CRISIS MANAGER, NICOLASA Unavailable Unavailable YARITZA OT, CLIVE Unavailable [...] 09-30 00:00: 00 ATHSCL HEART DISEASE OF [place] CORONARY ARTERY W/O ANG PCTRS Active 09-30 [...] FROM THE FOLLOWING PHYSICIANS AND THEIR ASSOCIATES: [facility] EMERGENCY PREPAREDNESS PLAN: REVIEWED EMERGENCY PREPAREDNESS PLAN, CLIENT WILL EVACUATE TO [facility] HOME EVACUATION PLAN IN THE EVENT OF AN EMERGENCY. ACUITY STATUS: WITHIN A WEEK POC SUMMARY: DOMINIC REEDER 10/17/2024 VERBAL ORDERS RECEIVED FROM MARK RICKETTS ON [facility] ON 10/17/2024 @ 1130AM OKAY TO DISCONTINUE [...] FROM THE FOLLOWING PHYSICIANS AND THEIR ASSOCIATES: [facility] EMERGENCY PREPAREDNESS PLAN: REVIEWED EMERGENCY PREPAREDNESS PLAN, CLIENT WILL EVACUATE TO [facility]'S HOME EVACUATION PLAN IN THE EVENT OF AN EMERGENCY. ACUITY STATUS: WITHIN A WEEK POC SUMMARY: DOMINIC REEDER 10/17/2024 VERBAL ORDERS RECEIVED FROM MARK RICKETTS ON [facility] ON 10/17/2024 @ 1130AM OKAY TO DISCONTINUE [...] ACTIVITIES OF DAILY LIVING.] Future Scheduled Test VCIKY LANE RN 09/30/2024 VO VIA AGENT RN FOR RICK FIGUEROA. APPROVED ASSISTED VISITS 1XWK [id number] W/ 3 PRN VISITS. ALUMINUM MOLDER 1XWK FOR 8WKS. [code = VICKY FERRARA RN 09/30/2024 VO VIA AGENT RN FOR RICK FIGUEROA. APPROVED ASSISTED VISITS 1XWK [id number] W/ 3 PRN VISITS. ALUMINUM MOLDER 1XWK FOR 8WKS.] Future Scheduled Test PHYSICAL [...] DEPRESSION. CL[facility] STEP TO ENTER WITHOUT [...] DEPRESSION. CLIENT LIV[facility] WITH [facility] WITH 1 STEP TO ENTER WITHOUT [...] End Date/Time Encounter Type Admission Type Attending [facility] Care Department Encounter ID [id number] 00:00:00 2024-11-28 00:00:00 Unknown NEW ADMISSION ALLIE FLORENCE, NATHAN ULLOA, NICOLASA VIGIL, DORIS ADHIKARI [facility] [id number]
== END 2024-10-18 08:55 | disposition home or self-care (01) ==
PROVIDERS: Emergency Provider Family Medicine
DX: T78.3XXA Angioneurotic edema, initial encounter (principal); T39.315A Adverse effect of propionic acid derivatives, initial encounter
CPT/HCPCS: 36415; 80048; 85025; 94761; 96372; 96374; 96375; 99283; 99291; J0169; J1200; J1308; J2919; J7050